=== PATIENT | female | born 1935 | race Caucasian/White ===

== ENCOUNTER 2017-02-15 08:10 | Outpatient (CLI) | payer MEDICARE, OTHER | END 2017-02-15 08:11 | disposition home or self-care (01) | DX: K76.89 Other specified diseases of liver (principal); N28.1 Cyst of kidney, acquired ==

== ENCOUNTER 2017-06-05 10:54 | Outpatient (CLI) | payer MEDICARE, OTHER ==
--- NOTE | 2017-06-05 18:12 | CT Report ---
NONCONTRAST HEAD CT: 06/05/2017 CLINICAL HISTORY: Left-sided head and eye pain. COMPARISON: 06/30/2008 TECHNIQUE: Axial, coronal, and sagittal head CT was obtained at 5 x 5 mm intervals. In accordance with CT protocol optimization, one or more of the following dose reduction techniques w ere utilized for this exam: automated exposure control, adjustment of mA and/or KV based on patient size, or use of iterative reconstructive technique. FINDINGS: Inferior tip of the cerebellar tonsils lies at the level of the foramen magnum. Sella tur cica is not enlarged. Mildly prominent suprasellar cistern is seen. Cerebral ventricles are normal. No extraaxial fluid collections are seen. No masses are noted. No hemorrhage is detected. No significant brain atrophy is seen. Bone windows appear normal. IMPRESSION: NORMAL EXAMINATION WITHOUT CHANGE NOTED COMPARED TO 06/30/2008. JOB #: [id number] EXT JOB #:[id number]
== END 2017-06-05 10:55 | disposition home or self-care (01) ==
LOC: DI 10:54
PROVIDERS: ATTEND Nurse Practitioner Family
DX: R51 Headache (principal)
CPT/HCPCS: 70450

== ENCOUNTER 2017-11-02 10:23 | Outpatient (CLI) | payer MEDICARE, OTHER ==
--- NOTE | 2017-11-08 11:45 | Mammography Report ---
EXAM: DIGITAL BILATERAL SCREENING MAMMOGRAM: 11/02/2017 CLINICAL INDICATION: An 82-year-old, for screening. COMPARISON: 09/2016, 03/2015, 02/2014, 02/2013, 12/2011, 08/2010. TECHNIQUE: Routine CC and MLO projections were obtained of the breasts. FINDINGS: The breasts again demonstrate scattered fibroglandular densities bilaterally. Coarse and punctate, typically benign calcifications are present. No suspicious masses, clustered microcalcifications, or regions of architectural distortion are identified. IMPRESSION: BENIGN FINDINGS. RECOMMENDATIONS: Routine annual screening unless otherwise clinically indicated. BIRADS 2 Benign findings. STANDARD QUALIFYING STATEMENTS: 1. This examination was reviewed with the aid of Computer-Aided Detection (CAD). 2. A negative or benign imaging report should not delay biopsy if clinically suspicious findings are present. Consider surgical consultation if warranted. More than 5% of cancers are not identified by imaging. 3. Dense breasts may obscure an underlying neoplasm. TD: 11/03/2017 16:50 [facility]
== END 2017-11-02 10:24 | disposition home or self-care (01) ==
LOC: DI 10:23
PROVIDERS: ATTEND Physician Assistant
DX: Z12.31 Encounter for screening mammogram for malignant neoplasm of breast (principal)
CPT/HCPCS: 77067

== ENCOUNTER 2018-03-06 08:26 | Day surgery (SDC) | payer MEDICARE, OTHER ==
[2018-03-06] MEDS ORDERED: LACTATED RINGERS 1,000 ML IV ONE (09:04)
[2018-03-06] MEDS ORDERED: fentaNYL 250 MCG/5 ML VIAL IVP ONE (10:04)
[2018-03-06] MEDS ORDERED: MIDAZOLAM 2 MG/2 ML VIAL IVP ONE (10:04)
[2018-03-06 11:53] VITALS: BP 129/58
== END 2018-03-06 08:27 | disposition home or self-care (01) ==
LOC: SDS 08:26
PROVIDERS: ATTEND Surgery
PROC: 0DB78ZX Excision of Stomach, Pylorus, Via Natural or Artificial Opening Endoscopic, Diagnostic (ICD-10-PCS; 2018-03-06)
PROC: 0DB38ZX Excision of Lower Esophagus, Via Natural or Artificial Opening Endoscopic, Diagnostic (ICD-10-PCS; 2018-03-06)
PROC: 0DBP8ZZ Excision of Rectum, Via Natural or Artificial Opening Endoscopic (ICD-10-PCS; principal; 2018-03-06 09:45)
PROC: 0DB48ZX Excision of Esophagogastric Junction, Via Natural or Artificial Opening Endoscopic, Diagnostic (ICD-10-PCS; 2018-03-06 09:45)
DX: R19.5 Other fecal abnormalities (principal); K22.711 Barrett's esophagus with high grade dysplasia; Z80.0 Family history of malignant neoplasm of digestive organs; K62.1 Rectal polyp; K44.9 Diaphragmatic hernia without obstruction or gangrene; K29.70 Gastritis, unspecified, without bleeding
CPT/HCPCS: 43239; 45380; J3010; J7120; 88305; 88342

== ENCOUNTER 2018-10-28 11:29 | Outpatient (CLI) | payer MEDICARE, OTHER ==
--- NOTE | 2018-10-28 21:28 | XRAY Report ---
Reason: PAIN IN LEFT SHOULDER Procedure Date: 10/28/2018 Accession Number: [id number] / [id number] Procedure: XR - Shoulder 3 View LT CPT Code: FULL RESULT: EXAM: LEFT SHOULDER RADIOGRAPHY EXAM DATE: 10/28/2018 12:47 PM. CLINICAL HISTORY: PAIN IN LEFT SHOULDER. COMPARISON: None available. TECHNIQUE: 3 views. FINDINGS: Bones: The bones are osteopenic. No acute fracture or dislocation visualized. Joints: There are mild degenerative changes of the acromioclavicular joint. The glenohumeral and acromioclavicular joints are intact. Soft tissues: There are nonspecific calcified densities superior to the humeral head, which may represent rotator cuff calcium deposition. IMPRESSION: Osteopenia. No acute fracture or dislocation visualized. Possible calcium deposition in the rotator cuff. RADIA
== END 2018-10-28 11:30 | disposition home or self-care (01) ==
LOC: DI 11:29
PROVIDERS: ATTEND Nurse Practitioner Family
DX: M85.812 Other specified disorders of bone density and structure, left shoulder (principal); M19.012 Primary osteoarthritis, left shoulder

== ENCOUNTER 2019-01-03 15:54 | Emergency (ER) | payer MEDICARE, OTHER ==
--- NOTE | 2019-01-03 16:29 | ED Physician Documentation ---
PD HPI DYSPNEA - Stated complaint Stated Complaint: SOA - Chief complaint Chief Complaint: Resp - History obtained from History obtained from: Patient - History of Present Illness Timing - onset: Other (4 days of cough with thick yellow phlegm. Generally worsening. Recent plane trip to [place]. Today, seen in clinic and started on zithromax, prednisone and albuterol.) Review of Systems Ten Systems: 10 systems reviewed and negative Constitutional: denies: Fever, Chills Cardiac: denies: Chest pain / pressure Respiratory: reports: Dyspnea, Cough GI: denies: Abdominal Pain, Nausea, Vomiting Musculoskeletal: denies: Neck pain, Back pain PD PAST MEDICAL HISTORY - Past Medical History Cardiovascular: Hypertension Respiratory: None Endocrine/Autoimmune: None GI: GERD, Hiatal hernia : None HEENT: Glaucoma, Other Psych: None Musculoskeletal: Osteoarthritis Derm: None - Past Surgical History General: Appendectomy, Colonoscopy Ortho: Spine surgery HEENT: Cataracts - Present Medications Home Medications: Ambulatory Orders Medication Instructions Recorded Confirmed ALPRAZolam [Alprazolam] 0.5 DAILY PM 03/06/18 Naproxen Sodium [Aleve] 1 DAILY PM 03/06/18 Omeprazole [PriLOSEC] 1 DAILY 03/06/18 Sertraline [Zoloft] 1 DAILY PM 03/06/18 amLODIPine [Norvasc] 1 DAILY 03/06/18 guaiFENesin/CODEINE [Robitussin AC] 5 - 10 ml PO Q6H PRN #120 ml 01/03/19 - Allergies Allergies/Adverse Reactions: Allergies Allergy/AdvReac Type Severity Reaction Status Date / Time Penicillins Allergy Hives Verified 03/06/18 08:59 Sulfa (Sulfonamide Allergy Nausea Verified 03/06/18 08:58 Antibiotics) PD ED PE NORMAL - Vitals Vital signs reviewed: Yes - General General: Alert and oriented X 3, No acute distress, Other (Occasional bronchitic cough) - HEENT HEENT: PERRL, EOMI - Neck Neck: Supple, no meningeal sign, No bony TTP - Cardiac Cardiac: RRR, No murmur - Respiratory Respiratory: No respiratory distress, Other (Rhonchorous throughout, nothing focal.) - Abdomen Abdomen: Soft, Non tender - Back Back: No CVA TTP, No spinal TTP - Derm Derm: Normal color, Warm and dry - Extremities Extremities: No edema, No calf tenderness / cord - Neuro Neuro: Alert and oriented X 3, Normal speech - Psych Psych: Normal mood, Normal affect Results - Vitals Vitals: Vital Signs - 24 hr 01/03/19 01/03/19 15:58 17:22 Temperature 36.1 C L Heart Rate 92 80 Respiratory 24 20 Rate Blood Pressure 164/76 H O2 Saturation 92 Oxygen O2 Source Room air - EKG (time done) 1606 Rate: Rate (enter#) (87) Rhythm: NSR [place]: Normal Intervals: Prolonged [place] QRS: Low voltage Ischemia: Non specific changes Computer interpretation: Agree with computer - Labs Labs: Laboratory Tests 01/03/19 01/03/19 01/03/19 16:12 16:12 16:12 WBC 8.7 RBC 4.39 Hgb 13.1 Hct 40.9 MCV 93.2 MCH 29.8 MCHC 32.0 RDW 13.9 Plt Count 233 MPV 8.4 Neut # (Auto) 6.1 Lymph # (Auto) 1.1 L [place] # (Auto) 1.4 H Eos # (Auto) 0.1 Baso # (Auto) 0.0 Absolute Nucleated RBC 0.01 Nucleated RBC % 0.1 D-Dimer 352.8 H Sodium 131 L Potassium 3.1 L Chloride 97 L Carbon Dioxide 25 Anion Gap 9.0 BUN 12 Creatinine 0.5 Estimated GFR (MDRD) 118 Glucose 115 H Calcium 8.9 Total Bilirubin 0.8 AST 33 ALT 21 Alkaline Phosphatase 53 Total Protein 6.7 Albumin 3.6 Globulin 3.1 Albumin/Globulin Ratio 1.2 Lipase 40 - Rads (name of study) 2v chest Radiology: EMP read contemporaneously (NAD) PD MEDICAL DECISION MAKING - ED course ED course: D-dimer checked given recent travel, the value obtained is less than most authorities would consider to be an appropriate cut off for ruling out PE which is 500, and much less than and age-adjusted cut off so I feel this value is negative especially given the low pretest probability. Otherwise she has a syndrome consistent with bronchitis which she is already on appropriate treatment for, albeit its only been for a few hours now so probably has not been enough time to see an effect. She was given a breathing treatment and some codeine here. Departure - Departure Disposition: 01 Home, Self Care Clinical Impression: Bronchitis Condition: Good Record reviewed to determine appropriate education?: Yes Instructions: ED Bronchitis Asthmatic Prescriptions: guaiFENesin/CODEINE [Robitussin AC] 5 - 10 ml PO Q6H PRN #120 ml PRN Reason: Cough Comments: Your blood pressure was elevated today on check into the emergency department. This does not mean that you have hypertension, it is a common phenomenon to come to the emergency department and have elevated blood pressure. I recommend that you see your primary care physician within the week to have it rechecked when you are feeling better.
[2019-01-03] MEDS ORDERED: guaiFENesin/CODEINE 5 ML UDC PO STA (16:41)
[2019-01-03 16:45] LABS: BASOPHILS % (AUTO) 0.5 %; EOSINOPHILS # (AUTO) 0.1 10^3/uL (0.0-0.7); EOSINOPHILS % (AUTO) 1.6 %; HGB - HEMOGLOBIN 13.1 g/dL (12.0-16.0); LYMPHOCYTES # (AUTO) 1.1 10^3/uL (1.5-3.5); LYMPHOCYTES % (AUTO) 12.6 %; MEAN CORPUSCULAR HEMOGLOBIN 29.8 pg (27.0-31.0); MEAN CORPUSCULAR VOLUME 93.2 fL (81.0-99.0); MEAN PLATELET VOLUME 8.4 fL (7.9-10.8); MONOCYTES # (AUTO) 1.4 10^3/uL (0.0-1.0); MONOCYTES % (AUTO) 15.7 %; NEUTROPHILS # (AUTO) 6.1 10^3/uL (1.5-6.6); NEUTROPHILS % (AUTO) 69.6 %; PLT - PLATELET COUNT 233 10^3/uL (130-450); RED BLOOD COUNT 4.39 10^6/uL (4.20-5.40); RED CELL DISTRIBUTION WIDTH 13.9 % (12.0-15.0); WHITE BLOOD COUNT 8.7 x10^3/uL (4.8-10.8)
[2019-01-03 16:51] LABS: ALBUMIN 3.6 g/dL (3.2-5.5); ALBUMIN/GLOBULIN RATIO 1.2 (1.0-2.2); BILIRUBIN,TOTAL 0.8 mg/dL (0.2-1.0); CALCIUM 8.9 mg/dL (8.5-10.3); CREATININE 0.5 mg/dL (0.4-1.0); TOTAL PROTEIN 6.7 g/dL (6.7-8.2)
[2019-01-03] MEDS ORDERED: IPRATROPIUM/ALBUTEROL 3 ML NEB INH STA (17:02)
--- NOTE | 2019-01-03 17:18 | XRAY Report ---
Reason: cough Procedure Date: 01/03/2019 Accession Number: [id number] / [id number] Procedure: XR - Chest 2 View X-Ray CPT Code: 68525 FULL RESULT: EXAM: CHEST RADIOGRAPHY EXAM DATE: 01/03/2019 05:06 PM. CLINICAL HISTORY: Cough. COMPARISON: XR CHEST PA AND LAT 07/02/2012 9:23 AM. TECHNIQUE: 2 views. FINDINGS: Lungs/Pleura: No focal opacities evident. No pleural effusion. No pneumothorax. Normal volumes. Mediastinum: Normal heart size. Tortuous, atherosclerotic aorta. Other: None. IMPRESSION: No acute cardiopulmonary abnormality. RADIA
[2019-01-03 17:59] VITALS: BP 122/91
== END 2019-01-03 18:00 | disposition home or self-care (01) ==
LOC: ED 15:54
DX: J40 Bronchitis, not specified as acute or chronic (principal); R94.31 Abnormal electrocardiogram [ECG] [EKG]; I10 Essential (primary) hypertension
CPT/HCPCS: 36415; 71046; 80053; 83690; 85025; 85379; 93005; 94640; 94664; 99283; 99284; A9270

== ENCOUNTER 2019-01-05 10:59 | Emergency (ER) | payer MEDICARE, OTHER ==
--- NOTE | 2019-01-05 11:53 | ED Physician Documentation ---
PD HPI URI - Stated complaint Stated Complaint: SOA/SENT BY - Chief complaint Chief Complaint: Resp - History obtained from History obtained from: Patient - History of Present Illness Timing - onset: How many weeks ago (1) Timing duration: Weeks (1) Timing details: Still present Associated symptoms: Chills, Dry cough, Dyspnea. No: Fever, Hemoptysis, Bilateral edema Contributing factors: COPD / asthma Worsened by: Activity Recently seen: Emergency Dept (2 days ago and Rx Robitussin AC for cough, after being seen in office with Rx for Zithromax, prednisone, and Albuterol inhaler. Still with cough and wheezing. Called her PMD today and referred to ER.) Review of Systems Constitutional: reports: Chills, Myalgias, Fatigue. denies: Fever Nose: reports: Congestion Throat: denies: Sore throat Respiratory: reports: Dyspnea, Cough, Wheezing GI: denies: Vomiting, Diarrhea Skin: denies: Rash, Lesions Musculoskeletal: denies: Extremity swelling PD PAST MEDICAL HISTORY - Past Medical History Cardiovascular: Hypertension Respiratory: None Endocrine/Autoimmune: None GI: GERD, Hiatal hernia : None HEENT: Glaucoma, Other Psych: None Musculoskeletal: Osteoarthritis Derm: None - Past Surgical History Past Surgical History: Yes General: Appendectomy, Colonoscopy Ortho: Spine surgery HEENT: Cataracts - Present Medications Home Medications: Ambulatory Orders Medication Instructions Recorded Confirmed ALPRAZolam [Alprazolam] 0.5 DAILY PM 03/06/18 Naproxen Sodium [Aleve] 1 DAILY PM 03/06/18 Omeprazole [PriLOSEC] 1 DAILY 03/06/18 Sertraline [Zoloft] 1 DAILY PM 03/06/18 amLODIPine [Norvasc] 1 DAILY 03/06/18 guaiFENesin/CODEINE [Robitussin AC] 5 - 10 ml PO Q6H PRN #120 ml 01/03/19 Albuterol 2.5 mg INH Q4H PRN #30 neb 01/05/19 Benzonatate [Tessalon Perle] 100 - 200 mg PO TID PRN #30 capsule 01/05/19 Nebulizer [Truneb Nebulizer] 1 each MC QID #1 each 01/05/19 - Allergies Allergies/Adverse Reactions: Allergies Allergy/AdvReac Type Severity Reaction Status Date / Time Penicillins Allergy Hives Verified 01/05/19 11:10 Sulfa (Sulfonamide Allergy Nausea Verified 01/05/19 11:10 Antibiotics) - Social History Does the pt smoke?: No Smoking Status: Never smoker Does the pt drink ETOH?: Yes Does the pt have substance abuse?: No - Immunizations Immunizations are current?: Yes PD ED PE NORMAL - Vitals Vital signs reviewed: Yes - General General: Alert and oriented X 3, No acute distress, Well developed/nourished - HEENT HEENT: Pharynx benign - Neck Neck: Supple, no meningeal sign, No adenopathy - Cardiac Cardiac: RRR, No murmur - Respiratory Respiratory: No respiratory distress. No: Clear bilaterally (diffuse wheezing and some prolonged exp phase. Able to talk in sentences. ) - Abdomen Abdomen: Soft, Non tender - Derm Derm: Normal color, Warm and dry - Extremities Extremities: No deformity, Normal ROM s pain, No edema, No calf tenderness / cord - Neuro Neuro: Alert and oriented X 3, No motor deficit, Normal speech Results - Vitals Vitals: Oxygen O2 Source Room air - Rads (name of study) chest xray Radiology: Prelim report reviewed (no pneumonia, similar to recent one. ), EMP read contemporaneously, See rad report PD MEDICAL DECISION MAKING - ED course Complexity details: considered differential (symptoms not too bad and vitals adequate. Feels better with neb. No pneumonia on xray. ), d/w patient Departure - Departure Disposition: 01 Home, Self Care Clinical Impression: Bronchitis Condition: Stable Record reviewed to determine appropriate education?: Yes Instructions: ED Bronchitis Asthmatic Follow-Up: Kendra Thornton PA [Primary Care Provider] - Prescriptions: Albuterol 2.5 mg INH Q4H PRN #30 neb PRN Reason: Wheezing Benzonatate [Tessalon Perle] 100 - 200 mg PO TID PRN #30 capsule PRN Reason: Cough Nebulizer [Truneb Nebulizer] 1 each QID #1 each Comments: The nebulizer seemed to work better for you than your inhaler at home. I wrote prescription for the nebulizer and some albuterol for it. Use this 4 times a day for the next week. Add extra doses or your inhaler as needed for wheezing. Continue your Zithromax daily for the total of 5 days. Take your prednisone prescribed 2 tablets daily rather than the 1 daily you are doing. Use Tessalon if needed for cough. Continue cough medicine if needed. Recheck if not improving still over the next few days. Discharge Date/Time: 01/05/19 14:43
[2019-01-05] MEDS ORDERED: IPRATROPIUM/ALBUTEROL 3 ML NEB INH STA (12:23)
[2019-01-05] MEDS ORDERED: guaiFENesin/CODEINE 5 ML UDC PO STA (12:25)
[2019-01-05] MEDS ORDERED: DEXAMETHASONE 10 MG/ML VIAL PO STA (12:25)
[2019-01-05] MEDS ORDERED: BENZONATATE 100 MG CAPSULE PO STA (12:25)
--- NOTE | 2019-01-05 13:30 | XRAY Report ---
Reason: cough for a week, meds for 2 days, not improving Procedure Date: 01/05/2019 Accession Number: [id number] / [id number] Procedure: XR - Chest 2 View X-Ray CPT Code: 05682 FULL RESULT: EXAM: CHEST RADIOGRAPHY EXAM DATE: 01/05/2019 01:14 PM. CLINICAL HISTORY: Cough for a week, meds for 2 days, not improving. COMPARISON: CHEST 2 VIEW 01/03/2019 4:56 PM. TECHNIQUE: 2 views. FINDINGS: Lungs/Pleura: No consolidative process or focal pneumonia. Negative for pulmonary edema and pleural effusion. Negative for pneumothorax. Mediastinum: Heart and mediastinal contours are unremarkable. Other: None. IMPRESSION: No consolidative process or focal pneumonia RADIA
[2019-01-05 13:52] VITALS: BP 134/100
== END 2019-01-05 14:43 | disposition home or self-care (01) ==
LOC: ED 10:59
DX: J40 Bronchitis, not specified as acute or chronic (principal); I10 Essential (primary) hypertension
CPT/HCPCS: 71046; 94640; 99283; A9270

== ENCOUNTER 2019-03-11 11:02 | Emergency (ER) | payer MEDICARE, OTHER ==
[2019-03-11 11:30] LABS: BASOPHILS # (AUTO) 0.1 10^3/uL (0.0-0.1); BASOPHILS % (AUTO) 1.4 %; EOSINOPHILS # (AUTO) 0.2 10^3/uL (0.0-0.7); EOSINOPHILS % (AUTO) 2.9 %; HGB - HEMOGLOBIN 14.5 g/dL (12.0-16.0); LYMPHOCYTES # (AUTO) 2.4 10^3/uL (1.5-3.5); LYMPHOCYTES % (AUTO) 31.8 %; MEAN CORPUSCULAR HEMOGLOBIN 29.4 pg (27.0-31.0); MEAN CORPUSCULAR HGB CONC 32.8 g/dL (32.0-36.0); MEAN CORPUSCULAR VOLUME 89.7 fL (81.0-99.0); MEAN PLATELET VOLUME 7.6 fL (7.9-10.8); MONOCYTES # (AUTO) 0.9 10^3/uL (0.0-1.0); MONOCYTES % (AUTO) 11.3 %; NEUTROPHILS % (AUTO) 52.6 %; PLT - PLATELET COUNT 246 10^3/uL (130-450); RED BLOOD COUNT 4.94 10^6/uL (4.20-5.40); RED CELL DISTRIBUTION WIDTH 14.7 % (12.0-15.0); WHITE BLOOD COUNT 7.7 x10^3/uL (4.8-10.8)
--- NOTE | 2019-03-11 11:33 | ED Physician Documentation ---
PD HPI CHEST PAIN - Stated complaint Stated Complaint: CHEST PX - Chief complaint Chief Complaint: Cardiac - History obtained from History obtained from: Patient - History of Present Illness Timing - onset: Yesterday Timing - details: Gradual onset Pain level max: 3 Pain level now: 0 Radiation: No: Jaw, Neck, Back, Abdominal, Left upper extremity, Right upper extremity Associated symptoms: Shortness of air. No: Diaphoresis, Nausea, Vomiting, Feeling faint / dizzy, General Weakness, Palpitations, Cough Similar symptoms before: Has not had sx before - Additional information Additional information: 83-year-old female states that she has been having intermittent shortness of breath since she had influenza a few months ago. She states that [place] when she felt mildly short of breath and like there was a band around her chest. This lasted approximately 2 hours. She saw her doctor this morning and was referred here. No cardiac history. States she has had a normal stress test in the past. She is currently asymptomatic. Nothing made it better or worse. Review of Systems Ten Systems: 10 systems reviewed and negative Constitutional: denies: Fever, Chills Nose: denies: Rhinorrhea / runny nose, Congestion Cardiac: denies: Palpitations GI: denies: Vomiting Skin: denies: Rash Musculoskeletal: denies: Neck pain, Back pain, Extremity pain PD PAST MEDICAL HISTORY - Past Medical History Cardiovascular: Hypertension Respiratory: None Endocrine/Autoimmune: None GI: GERD, Hiatal hernia : None HEENT: Glaucoma, Other Psych: None Musculoskeletal: Osteoarthritis Derm: None - Past Surgical History Past Surgical History: Yes General: Appendectomy, Colonoscopy Ortho: Spine surgery HEENT: Cataracts - Present Medications Home Medications: Ambulatory Orders Medication Instructions Recorded Confirmed Sertraline [Zoloft] 1 DAILY PM 03/06/18 amLODIPine [Norvasc] 1 DAILY 03/06/18 ALPRAZolam [Alprazolam] 0.5 mg PO 03/11/19 Simvastatin 20 mg PO 03/11/19 - Allergies Allergies/Adverse Reactions: Allergies Allergy/AdvReac Type Severity Reaction Status Date / Time Penicillins Allergy Hives Verified 03/11/19 11:49 [id number]-[id number]-Kge Reductase Allergy Unknown Verified 03/11/19 11:49 Inhibitor Sulfa (Sulfonamide Allergy Nausea Verified 03/11/19 11:49 Antibiotics) trazodone Allergy Unknown Verified 03/11/19 11:49 aspirin AdvReac Unknown Verified 03/11/19 11:49 codeine AdvReac Unknown Verified 03/11/19 11:49 - Social History Does the pt smoke?: No Smoking Status: Never smoker Does the pt drink ETOH?: Yes Does the pt have substance abuse?: No - Immunizations Immunizations are current?: Yes PD ED PE NORMAL - Vitals Vital signs reviewed: Yes - General General: Alert and oriented X 3, No acute distress, Well developed/nourished - HEENT HEENT: PERRL, Ears normal, Moist mucous membranes, Pharynx benign - Neck Neck: Supple, no meningeal sign - Cardiac Cardiac: RRR, Strong equal pulses - Respiratory Respiratory: No respiratory distress, Clear bilaterally - Abdomen Abdomen: Soft, Non tender, Non distended - Back Back: No spinal TTP - Derm Derm: Warm and dry - Extremities Extremities: No edema, No calf tenderness / cord - Neuro Neuro: Alert and oriented X 3 - Psych Psych: Normal mood, Normal affect Results - Vitals Vitals: Vital Signs - 24 hr 03/11/19 03/11/19 03/11/19 11:09 11:38 12:25 Temperature 36.6 C Heart Rate 78 70 64 Respiratory 22 20 21 Rate Blood Pressure 164/87 H 119/79 123/67 O2 Saturation 100 93 94 Oxygen O2 Source Room air - EKG (time done) 1108 Rate: Rate (enter#) (73) Rhythm: NSR [place]: Other (Left anterior fascicular block) Intervals: 1st degree AVB QRS: Normal Ischemia: Non specific changes - Labs Labs: Laboratory Tests 03/11/19 03/11/19 03/11/19 11:16 11:16 11:16 WBC 7.7 RBC 4.94 Hgb 14.5 Hct 44.4 MCV 89.7 MCH 29.4 MCHC 32.8 RDW 14.7 Plt Count 246 MPV 7.6 L Neut # (Auto) 4.0 Lymph # (Auto) 2.4 [place] # (Auto) 0.9 Eos # (Auto) 0.2 Baso # (Auto) 0.1 Absolute Nucleated RBC 0.01 Nucleated RBC % 0.1 Sodium 137 Potassium 3.7 Chloride 101 Carbon Dioxide 28 Anion Gap 8.0 BUN 21 H Creatinine 0.7 Estimated GFR (MDRD) 80 L Glucose 84 Calcium 9.3 Total Bilirubin 0.7 AST 27 ALT 18 Alkaline Phosphatase 58 Troponin I < 0.04 Total Protein 7.2 Albumin 4.4 Globulin 2.8 Albumin/Globulin Ratio 1.6 Lipase 37 - Rads (name of study) Chest x-ray Radiology: Prelim report reviewed, EMP read contemporaneously, See rad report (No acute abnormality) PD MEDICAL DECISION MAKING - ED course Complexity details: reviewed results, re-evaluated patient, considered differe ntial (No ST elevation DC, no aortic dissection, no PE, no tension pneumothorax, no aortic aneurysm), d/w patient ED course: 83-year-old female with chest pain yesterday. Negative troponin. No acute ischemic changes on EKG. Will follow up with her doctor this week for a stress test. Will start on aspirin daily. Patient counseled regarding signs and symptoms for which I believe and urgent re-evaluation would be necessary. Patient with good understanding of and agreement to plan and is comfortable going home at this time This document was made in part using voice recognition software. While efforts are made to proofread this document, sound alike and grammatical errors may occur. Departure - Departure Disposition: Home, Self Care Clinical Impression: Chest pain Qualifiers: Chest pain type: unspecified Qualified Code(s): R07.9 - Chest pain, unspecified Dyspnea Qualifiers: Dyspnea type: unspecified Qualified Code(s): R06.00 - Dyspnea, unspecified Condition: Good Instructions: ED Chest Pain Atypical Unkn Cause Follow-Up: Kendra Thornton PA [Primary Care Provider] - Within 3 Days Comments: The cause of your symptoms is unclear. You should start on a aspirin, 81 mg by mouth daily. You should also have a cardiac stress test scheduled this week with your doctor. Return if you worsen Discharge Date/Time: 03/11/19 12:35
[2019-03-11 11:48] LABS: ALBUMIN 4.4 g/dL (3.2-5.5); ALBUMIN/GLOBULIN RATIO 1.6 (1.0-2.2); BILIRUBIN,TOTAL 0.7 mg/dL (0.2-1.0); CALCIUM 9.3 mg/dL (8.5-10.3); CREATININE 0.7 mg/dL (0.4-1.0); TOTAL PROTEIN 7.2 g/dL (6.7-8.2)
--- NOTE | 2019-03-11 12:04 | XRAY Report ---
Reason: Chest Pain Procedure Date: 03/11/2019 Accession Number: [id number] / [id number] Procedure: XR - Chest 1 View X-Ray CPT Code: 27444 FULL RESULT: EXAM: CHEST RADIOGRAPHY EXAM DATE: 03/11/2019 11:33 AM. CLINICAL HISTORY: Chest pain. COMPARISON: CHEST 2 VIEW 01/05/2019 1:03 PM. TECHNIQUE: 1 view. FINDINGS: Lungs/Pleura: No focal opacities evident. No pleural effusion. No pneumothorax. Mediastinum: Redemonstration of mild aortic calcifications with stable cardiomediastinal silhouette. Other: None. IMPRESSION: No acute cardiopulmonary abnormality. RADIA
[2019-03-11 12:29] VITALS: BP 123/67
== END 2019-03-11 12:35 | disposition home or self-care (01) ==
LOC: ED 11:02
DX: R07.9 Chest pain, unspecified (principal); R06.02 Shortness of breath; I10 Essential (primary) hypertension
CPT/HCPCS: 36415; 71045; 80053; 83690; 84484; 85025; 93005; 99283

== ENCOUNTER 2019-03-28 16:05 | Outpatient (CLI) | payer MEDICARE, OTHER ==
--- NOTE | 2019-03-29 08:23 | Mammography Report ---
Reason: SCREENING MAMMO Procedure Date: 03/28/2019 Accession Number: [id number] / [id number] Procedure: GRICEL - Screening Mammo w/Flavio CPT Code: FULL RESULT: EXAM: Screening Mammo w/Flavio DATE: 03/28/2019 4:45 PM CLINICAL HISTORY: Screening encounter. History of greater than 10 years combine estrogen and progesterone therapy, [id number]. TECHNIQUE: (B) - Bilateral CC and MLO views were obtained. COMPARISON: 11/02/2017 through 01/11/2012. PARENCHYMAL PATTERN: (A) - The breast(s) demonstrate(s) scattered fibroglandular densities. FINDINGS: There are typically benign vascular calcifications. There are no suspicious masses, calcifications, or areas of distortion. IMPRESSION: Benign findings. BI-RADS category 2. RECOMMENDATION: (ANNUAL) - Recommend routine annual screening mammography. BI-RADS CATEGORY: (2) - Benign Findings. STANDARD QUALIFYING STATEMENTS: 1. This examination was not reviewed with the aid of Computer-Aided Detection (CAD). 2. A negative or benign imaging report should not preclude biopsy if clinically suspicious findings are present. 3. Dense breasts may obscure an underlying neoplasm. 4. This examination was reviewed with the aid of 3D breast imaging (tomosynthesis).
== END 2019-03-28 16:06 | disposition home or self-care (01) ==
LOC: DI 16:05
PROVIDERS: ATTEND Physician Assistant
DX: Z12.31 Encounter for screening mammogram for malignant neoplasm of breast (principal)
CPT/HCPCS: 77063; 77067

== ENCOUNTER 2019-06-04 10:15 | Outpatient (CLI) | payer MEDICARE, OTHER ==
[2019-06-04 11:14] LABS: CHOLESTEROL 289 mg/dL; HDL CHOLESTEROL 72 mg/dL; LDL CHOLESTEROL,CALCULATED 200 mg/dL; LDL/HDL RATIO 2.8 (<4.4); VLDL CHOLESTEROL 17 mg/dL
== END 2019-06-04 10:16 | disposition home or self-care (01) ==
LOC: LAB 10:15
PROVIDERS: ATTEND Internal Medicine Cardiovascular Disease
DX: E78.5 Hyperlipidemia, unspecified (principal)
CPT/HCPCS: 36415; 80061; 83721

== ENCOUNTER 2019-09-05 02:21 | Outpatient (CLI) | payer MEDICARE, OTHER | END 2019-09-05 02:22 | disposition critical access hospital (66) | LOC: EMS 02:21 | PROVIDERS: ATTEND Surgery | DX: R04.0 Epistaxis (principal) | CPT/HCPCS: A0425; A0429 ==

== ENCOUNTER 2019-09-05 02:43 | Emergency (ER) | payer MEDICARE, OTHER ==
[2019-09-05] MEDS ORDERED: TRANEXAMIC ACID 1,000 MG/10 ML VIAL NAS STA (02:50)
[2019-09-05] MEDS ORDERED: OXYMETAZOLINE HCL 100 SPRAYS BOTTLE NAS STA (02:50)
--- NOTE | 2019-09-05 02:51 | ED Physician Documentation ---
PD HPI HEENT - Stated complaint Stated Complaint: NOSE BLEED - Chief complaint Chief Complaint: Heent - History obtained from History obtained from: Patient, EMS - History of Present Illness Timing - onset: How many hours ago (11/21) Timing - duration: Hours (2) Timing - details: Abrupt onset, Still present Location: Nose (right nostril) Improves: Nothing (tried pinching and ice on neck.) Associated symptoms: No: Fever, Congestion Similar symptoms before: Has not had sx before Recently seen: Clinic (has had some respiratory wheezing and seen by Pulm, on steroids the past 5 weeks. Has Pulmonary Rehab.) Review of Systems Constitutional: denies: Fever Nose: denies: Rhinorrhea / runny nose, Congestion Throat: denies: Sore throat Cardiac: denies: Chest pain / pressure Respiratory: reports: Dyspnea, Cough, Wheezing (for months) Neurologic: denies: Generalized weakness, Near syncope Endocrine: denies: Easy bruising / bleeding PD PAST MEDICAL HISTORY - Past Medical History Cardiovascular: None Respiratory: Shortness of breath Neuro: None Endocrine/Autoimmune: None - Present Medications Home Medications: Ambulatory Orders Medication Instructions Recorded Confirmed Sertraline [Zoloft] 50 mg PO DAILY PM 03/06/18 09/05/19 amLODIPine [Norvasc] 5 mg PO DAILY 03/06/18 09/05/19 ALPRAZolam [Alprazolam] 0.5 mg PO DAILY 03/11/19 09/05/19 Simvastatin 20 mg PO DAILY 03/11/19 09/05/19 Amitriptyline HCl 5 mg PO DAILY 09/05/19 09/05/19 Calcium Carbonate/Vitamin D3 1 tab PO DAILY 09/05/19 09/05/19 [Calcium 500-Vit D3 200 Tablet] Cholecalciferol (Vitamin D3) 1 cap PO DAILY 09/05/19 09/05/19 [Vitamin D3] [place]-3/Dha/Epa/Fish Oil [Fish Oil 1 cap PO DAILY 09/05/19 09/05/19 1,000 mg Softgel] - Allergies Allergies/Adverse Reactions: Allergies Allergy/AdvReac Type Severity Reaction Status Date / Time Penicillins Allergy Hives Verified 09/05/19 02:54 Pynwtnn-Rwt-Tub Reductase Allergy Unknown Verified 09/05/19 02:54 Inhibitor Sulfa (Sulfonamide Allergy Nausea Verified 09/05/19 02:54 Antibiotics) trazodone Allergy Unknown Verified 09/05/19 02:54 aspirin AdvReac Unknown Verified 09/05/19 02:54 codeine AdvReac Unknown Verified 09/05/19 02:54 PD ED PE NORMAL - Vitals Vital signs reviewed: Yes - General General: Alert and oriented X 3, Well developed/nourished - HEENT HEENT: Moist mucous membranes, Pharynx benign, Other (right nare with active bleeding without pressure. Left nare normal. Single spot of inflammed vessel as source of bleeding. No ulcerations. ) - Neck Neck: Supple, no meningeal sign, No adenopathy - Cardiac Cardiac: RRR, No murmur - Derm Derm: Normal color, Warm and dry - Neuro Neuro: Alert and oriented X 3, No motor deficit, No sensory deficit Results - Vitals Vitals: Vital Signs - 24 hr 09/05/19 09/05/19 09/05/19 02:45 03:02 03:10 Temperature 36.9 C Heart Rate 94 82 69 Respiratory 18 18 16 Rate Blood Pressure 185/111 H 135/101 H 132/89 H O2 Saturation 98 94 95 09/05/19 03:53 Temperature Heart Rate 64 Respiratory 15 Rate Blood Pressure 123/82 H O2 Saturation 96 Oxygen O2 Source Room air - Labs Labs: Laboratory Tests 09/05/19 09/05/19 03:00 03:00 WBC 13.4 H RBC 4.57 Hgb 13.8 Hct 42.1 MCV 92.1 MCH 30.2 MCHC 32.8 RDW 15.0 Plt Count 245 MPV 8.6 Neut # (Auto) 9.6 H Lymph # (Auto) 2.3 [place] # (Auto) 1.3 H Eos # (Auto) 0.1 Baso # (Auto) 0.0 Absolute Nucleated RBC 0.00 Nucleated RBC % 0.0 Sodium 136 Potassium 3.5 Chloride 102 Carbon Dioxide 24 Anion Gap 10.0 BUN 33 H Creatinine 0.6 Estimated GFR (MDRD) 95 Glucose 99 Calcium 9.5 Total Bilirubin 0.8 AST 19 ALT 22 Alkaline Phosphatase 43 Total Protein 6.6 L Albumin 4.1 Globulin 2.5 Albumin/Globulin Ratio 1.6 Lipase 44 Procedures - Epistaxis Site: Right, Anterior Preparation: Afrin, Clamp / pressure applied, Other (TXA) Treatment: Silver Nitrate, Packing inserted (murocel) Other: Observed - no bleeding, Pt tolerated well, O2 sat WNL PD MEDICAL DECISION MAKING - ED course Complexity details: considered differential, d/w patient Departure - Departure Disposition: 01 Home, Self Care Clinical Impression: Anterior epistaxis Condition: Stable Record reviewed to determine appropriate education?: Yes Instructions: ED Nosebleed Comments: Keep the foam packing in the nostril for a day and then remove it gently. If you have recurrent bleeding, then saturated the foam with the Afrin spray and pinch the nose for at least 15 minutes. Return if bleeding persist despite that. Otherwise if no further bleeding and remove the packing gently in a day or follow-up with your primary care to have it removed or back to the ER. It looks like just a spot of irritation on the nasal wall with an inflamed blood vessel. This should heal up with the chemical sealant and time.
[2019-09-05 03:33] LABS: HGB - HEMOGLOBIN 13.8 g/dL (12.0-16.0); MEAN CORPUSCULAR HEMOGLOBIN 30.2 pg (27.0-31.0); MEAN CORPUSCULAR VOLUME 92.1 fL (81.0-99.0); RED BLOOD COUNT 4.57 10^6/uL (4.20-5.40); WHITE BLOOD COUNT 13.4 x10^3/uL (4.8-10.8)
[2019-09-05 03:34] LABS: BASOPHILS % (AUTO) 0.1 %; EOSINOPHILS # (AUTO) 0.1 10^3/uL (0.0-0.7); EOSINOPHILS % (AUTO) 0.5 %; LYMPHOCYTES # (AUTO) 2.3 10^3/uL (1.5-3.5); LYMPHOCYTES % (AUTO) 17.5 %; MEAN CORPUSCULAR HGB CONC 32.8 g/dL (32.0-36.0); MEAN PLATELET VOLUME 8.6 fL (7.9-10.8); MONOCYTES # (AUTO) 1.3 10^3/uL (0.0-1.0); MONOCYTES % (AUTO) 9.5 %; NEUTROPHILS # (AUTO) 9.6 10^3/uL (1.5-6.6); PLT - PLATELET COUNT 245 10^3/uL (130-450)
[2019-09-05 03:38] LABS: ALBUMIN 4.1 g/dL (3.2-5.5); ALBUMIN/GLOBULIN RATIO 1.6 (1.0-2.2); BILIRUBIN,TOTAL 0.8 mg/dL (0.2-1.0); CALCIUM 9.5 mg/dL (8.5-10.3); CREATININE 0.6 mg/dL (0.4-1.0); TOTAL PROTEIN 6.6 g/dL (6.7-8.2)
[2019-09-05 05:27] VITALS: BP 142/91
== END 2019-09-05 05:45 | disposition home or self-care (01) ==
LOC: EDUNIT# → ED 02:43
DX: R04.0 Epistaxis (principal)
CPT/HCPCS: 30901; 36415; 80053; 83690; 85025; 99282; 99283; A9270

== ENCOUNTER 2019-09-10 20:59 | Emergency (ER) | payer MEDICARE, OTHER ==
[2019-09-10] MEDS ORDERED: OXYMETAZOLINE HCL 100 SPRAYS BOTTLE NAS STA (21:49)
[2019-09-10] MEDS ORDERED: LIDOCAINE 1%-EPI 1:100000 20 ML MDV SUBQ STA (21:49)
--- NOTE | 2019-09-10 21:52 | ED Physician Documentation ---
PD HPI HEENT - Stated complaint Stated Complaint: NOSEBLEED - Chief complaint Chief Complaint: Heent - History obtained from History obtained from: Patient - History of Present Illness Timing - onset: Today (She was seen here last week with a nosebleed, Merisel packing was placed. It started bleeding again from the right just prior to arrival. Labs last week were unremarkable. 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 : None HEENT: Glaucoma, Other Psych: Anxiety Musculoskeletal: Osteoarthritis Derm: None - Past Surgical History Past Surgical History: Yes General: Appendectomy, Colonoscopy Ortho: Spine surgery HEENT: Cataracts - Present Medications Home Medications: Ambulatory Orders Medication Instructions Recorded Confirmed Sertraline [Zoloft] 50 mg PO DAILY PM 03/06/18 09/05/19 amLODIPine [Norvasc] 5 mg PO DAILY 03/06/18 09/05/19 ALPRAZolam [Alprazolam] 0.5 mg PO DAILY 03/11/19 09/05/19 Simvastatin 20 mg PO DAILY 03/11/19 09/05/19 Amitriptyline HCl 5 mg PO DAILY 09/05/19 09/05/19 Calcium Carbonate/Vitamin D3 1 tab PO DAILY 09/05/19 09/05/19 [Calcium 500-Vit D3 200 Tablet] Cholecalciferol (Vitamin D3) 1 cap PO DAILY 09/05/19 09/05/19 [Vitamin D3] [place]-3/Dha/Epa/Fish Oil [Fish Oil 1 cap PO DAILY 09/05/19 09/05/19 1,000 mg Softgel] - Allergies Allergies/Adverse Reactions: Allergies Allergy/AdvReac Type Severity Reaction Status Date / Time Penicillins Allergy Hives Verified 09/05/19 02:54 Qiktydp-Yoz-Ovf Reductase Allergy Unknown Verified 09/05/19 02:54 Inhibitor Sulfa (Sulfonamide Allergy Nausea Verified 09/05/19 02:54 Antibiotics) trazodone Allergy Unknown Verified 09/05/19 02:54 aspirin AdvReac Unknown Verified 09/05/19 02:54 codeine AdvReac Unknown Verified 09/05/19 02:54 - Social History Does the pt smoke?: No Smoking Status: Never smoker Does the pt drink ETOH?: Yes Does the pt have substance abuse?: No - Immunizations Immunizations are current?: Yes - POLST Patient has POLST: No PD ED PE NORMAL - Vitals Vital signs reviewed: Yes - General General: Alert and oriented X 3, No acute distress - HEENT HEENT: Other (active venous epistaxis from R nares) - Neuro Neuro: Alert and oriented X 3, Normal speech Results - Vitals Vitals: Vital Signs - 24 hr 09/10/19 21:05 Temperature 36.7 C Heart Rate 93 Respiratory 18 Rate Blood Pressure 149/103 H O2 Saturation 94 Oxygen O2 Source Room air Procedures - Epistaxis Site: Right Preparation: Clots removed, Afrin, Lidocaine, Clamp / pressure applied Treatment: Silver Nitrate Other: Observed - no bleeding Departure - Departure Disposition: 01 Home, Self Care Clinical Impression: Anterior epistaxis Condition: Good Record reviewed to determine appropriate education?: Yes Instructions: Nosebleed Comments: Your blood pressure was elevated today on check into the emergency department. This does not mean that you have hypertension, it is a common phenomenon to come to the emergency department and have elevated blood pressure. I recommend that you see your primary care physician within the week to have it rechecked when you are feeling better.
[2019-09-10 23:22] VITALS: BP 121/66
== END 2019-09-10 23:24 | disposition home or self-care (01) ==
LOC: ED 20:59
DX: R04.0 Epistaxis (principal); I10 Essential (primary) hypertension
CPT/HCPCS: 30901; 99281; 99282; A9270

== ENCOUNTER 2019-11-26 08:47 | Outpatient (CLI) | payer MEDICARE, OTHER ==
[2019-11-26 09:22] LABS: ALBUMIN 4.5 g/dL (3.2-5.5); ALKALINE PHOSPHATASE 52 IU/L (42-121); ALT ALANINE AMINOTRANSFERASE 19 IU/L (10-60); AST ASPARTATE AMINOTRANSFERASE 21 IU/L (10-42); BILIRUBIN,DIRECT 0.1 mg/dL (0.1-0.5); BILIRUBIN,TOTAL 0.8 mg/dL (0.2-1.0); CHOL/HDL RATIO 2.9 (<4.4); CHOLESTEROL 234 mg/dL; HDL CHOLESTEROL 80 mg/dL; LDL CHOLESTEROL,CALCULATED 137 mg/dL; LDL/HDL RATIO 1.7 (<4.4); TOTAL PROTEIN 6.9 g/dL (6.7-8.2); VLDL CHOLESTEROL 17 mg/dL
== END 2019-11-26 08:48 | disposition home or self-care (01) ==
LOC: LAB 08:47
PROVIDERS: ATTEND Internal Medicine Cardiovascular Disease
DX: E78.5 Hyperlipidemia, unspecified (principal)
CPT/HCPCS: 36415; 80061; 80076; 83721

== ENCOUNTER 2020-01-31 08:25 | Outpatient (CLI) | payer MEDICARE, OTHER ==
[2020-01-31 09:08] LABS: BASOPHILS # (AUTO) 0.1 10^3/uL (0.0-0.1); BASOPHILS % (AUTO) 0.8 %; EOSINOPHILS # (AUTO) 0.3 10^3/uL (0.0-0.7); EOSINOPHILS % (AUTO) 4.3 %; HGB - HEMOGLOBIN 14.6 g/dL (12.0-16.0); LYMPHOCYTES % (AUTO) 33.2 %; MEAN CORPUSCULAR HEMOGLOBIN 28.5 pg (27.0-31.0); MEAN CORPUSCULAR HGB CONC 31.9 g/dL (32.0-36.0); MEAN CORPUSCULAR VOLUME 89.1 fL (81.0-99.0); MEAN PLATELET VOLUME 9.7 fL (7.9-10.8); MONOCYTES # (AUTO) 0.7 10^3/uL (0.0-1.0); MONOCYTES % (AUTO) 11.6 %; NEUTROPHILS % (AUTO) 49.8 %; PLT - PLATELET COUNT 256 10^3/uL (130-450); RED BLOOD COUNT 5.13 10^6/uL (4.20-5.40); RED CELL DISTRIBUTION WIDTH 14.9 % (12.0-15.0); WHITE BLOOD COUNT 6.1 x10^3/uL (4.8-10.8)
[2020-01-31 09:11] LABS: ALBUMIN 4.6 g/dL (3.2-5.5); ALBUMIN/GLOBULIN RATIO 1.6 (1.0-2.2); BILIRUBIN,TOTAL 0.7 mg/dL (0.2-1.0); CALCIUM 9.2 mg/dL (8.5-10.3); CREATININE 0.7 mg/dL (0.4-1.0); TOTAL PROTEIN 7.4 g/dL (6.7-8.2)
== END 2020-01-31 08:26 | disposition home or self-care (01) ==
LOC: LAB 08:25
PROVIDERS: ATTEND Internal Medicine
DX: J84.9 Interstitial pulmonary disease, unspecified (principal); Z79.899 Other long term (current) drug therapy; R05 Cough; R06.09 Other forms of dyspnea
CPT/HCPCS: 36415; 80053; 85025

== ENCOUNTER 2020-05-05 09:39 | Outpatient (CLI) | payer MEDICARE, OTHER ==
[2020-05-05 09:56] LABS: BASOPHILS # (AUTO) 0.1 10^3/uL (0.0-0.1); BASOPHILS % (AUTO) 0.8 %; EOSINOPHILS # (AUTO) 0.2 10^3/uL (0.0-0.7); EOSINOPHILS % (AUTO) 3.3 %; HGB - HEMOGLOBIN 14.8 g/dL (12.0-16.0); LYMPHOCYTES # (AUTO) 1.6 10^3/uL (1.5-3.5); LYMPHOCYTES % (AUTO) 25.4 %; MEAN CORPUSCULAR HEMOGLOBIN 28.4 pg (27.0-31.0); MEAN CORPUSCULAR HGB CONC 31.5 g/dL (32.0-36.0); MEAN CORPUSCULAR VOLUME 90.2 fL (81.0-99.0); MEAN PLATELET VOLUME 8.9 fL (7.9-10.8); MONOCYTES # (AUTO) 0.9 10^3/uL (0.0-1.0); MONOCYTES % (AUTO) 13.8 %; NEUTROPHILS # (AUTO) 3.6 10^3/uL (1.5-6.6); NEUTROPHILS % (AUTO) 56.5 %; PLT - PLATELET COUNT 242 10^3/uL (130-450); RED BLOOD COUNT 5.21 10^6/uL (4.20-5.40); RED CELL DISTRIBUTION WIDTH 13.5 % (12.0-15.0); WHITE BLOOD COUNT 6.3 x10^3/uL (4.8-10.8)
[2020-05-05 10:07] LABS: ALBUMIN 4.6 g/dL (3.2-5.5); ALBUMIN/GLOBULIN RATIO 1.7 (1.0-2.2); CALCIUM 9.7 mg/dL (8.5-10.3); CREATININE 0.8 mg/dL (0.4-1.0); TOTAL PROTEIN 7.3 g/dL (6.7-8.2)
== END 2020-05-05 09:40 | disposition home or self-care (01) ==
LOC: LAB 09:39
PROVIDERS: ATTEND Internal Medicine
DX: D84.8 Other specified immunodeficiencies (principal); Z79.899 Other long term (current) drug therapy; J84.9 Interstitial pulmonary disease, unspecified
CPT/HCPCS: 36415; 80053; 85025

== ENCOUNTER 2020-07-03 08:00 | Outpatient (CLI) | payer MEDICARE, OTHER ==
[2020-07-03 08:16] LABS: BASOPHILS % (AUTO) 0.5 %; EOSINOPHILS # (AUTO) 0.2 10^3/uL (0.0-0.7); EOSINOPHILS % (AUTO) 3.4 %; HGB - HEMOGLOBIN 14.4 g/dL (12.0-16.0); LYMPHOCYTES # (AUTO) 1.5 10^3/uL (1.5-3.5); MEAN CORPUSCULAR HEMOGLOBIN 30.5 pg (27.0-31.0); MEAN CORPUSCULAR HGB CONC 32.2 g/dL (32.0-36.0); MEAN CORPUSCULAR VOLUME 94.7 fL (81.0-99.0); MEAN PLATELET VOLUME 8.7 fL (7.9-10.8); MONOCYTES # (AUTO) 0.7 10^3/uL (0.0-1.0); MONOCYTES % (AUTO) 12.3 %; NEUTROPHILS # (AUTO) 3.4 10^3/uL (1.5-6.6); NEUTROPHILS % (AUTO) 57.6 %; PLT - PLATELET COUNT 244 10^3/uL (130-450); RED BLOOD COUNT 4.72 10^6/uL (4.20-5.40); RED CELL DISTRIBUTION WIDTH 14.1 % (12.0-15.0); WHITE BLOOD COUNT 5.9 x10^3/uL (4.8-10.8)
[2020-07-03 08:26] LABS: ALBUMIN 4.6 g/dL (3.2-5.5); ALBUMIN/GLOBULIN RATIO 1.9 (1.0-2.2); BILIRUBIN,TOTAL 0.7 mg/dL (0.2-1.0); CALCIUM 9.5 mg/dL (8.5-10.3); CREATININE 0.8 mg/dL (0.4-1.0)
== END 2020-07-03 08:01 | disposition home or self-care (01) ==
LOC: LAB 08:00
PROVIDERS: ATTEND Internal Medicine
DX: D84.9 Immunodeficiency, unspecified (principal); Z79.899 Other long term (current) drug therapy
CPT/HCPCS: 36415; 80053; 85025

== ENCOUNTER 2020-07-06 14:59 | Outpatient (CLI) | payer MEDICARE, OTHER | END 2020-07-06 15:00 | disposition critical access hospital (66) | LOC: EMS 14:59 | PROVIDERS: ATTEND Surgery | DX: R42 Dizziness and giddiness (principal); R06.02 Shortness of breath; R53.83 Other fatigue | CPT/HCPCS: A0425; A0429 ==

== ENCOUNTER 2020-07-06 15:15 | Emergency (ER) | payer MEDICARE, OTHER ==
[2020-07-06 16:07] LABS: BASOPHILS % (AUTO) 0.5 %; EOSINOPHILS # (AUTO) 0.2 10^3/uL (0.0-0.7); EOSINOPHILS % (AUTO) 2.7 %; HGB - HEMOGLOBIN 13.9 g/dL (12.0-16.0); LYMPHOCYTES # (AUTO) 1.6 10^3/uL (1.5-3.5); LYMPHOCYTES % (AUTO) 21.4 %; MEAN CORPUSCULAR HEMOGLOBIN 30.3 pg (27.0-31.0); MEAN CORPUSCULAR HGB CONC 33.3 g/dL (32.0-36.0); MEAN CORPUSCULAR VOLUME 91.3 fL (81.0-99.0); MEAN PLATELET VOLUME 8.6 fL (7.9-10.8); MONOCYTES # (AUTO) 1.1 10^3/uL (0.0-1.0); MONOCYTES % (AUTO) 14.6 %; NEUTROPHILS # (AUTO) 4.5 10^3/uL (1.5-6.6); NEUTROPHILS % (AUTO) 60.4 %; PLT - PLATELET COUNT 236 10^3/uL (130-450); RED BLOOD COUNT 4.58 10^6/uL (4.20-5.40); RED CELL DISTRIBUTION WIDTH 13.8 % (12.0-15.0); WHITE BLOOD COUNT 7.5 x10^3/uL (4.8-10.8)
--- NOTE | 2020-07-06 16:15 | ED Physician Documentation ---
History of Present Illness - Stated complaint Stated Complaint: DIZZY/SOA - Chief complaint Chief Complaint: Neuro - History obtained from History obtained from: Patient - History of Present Illness Timing: Today Pain level max: 0 Pain level now: 0 - Additonal information Additional information: 85-year-old female states that she felt like she was having shortness of breath today. This is an ongoing issue that has been ongoing for the past several years. Nothing makes it better or worse. Has been under increasing stress lately and is selling her house today. She also had chest tightness which is not unusual for her either. She states that she had a normal "full cardiac work-up" approximately [address] Greene, cardiology in [place]. Patient is currently asymptomatic. Symptoms started approximately 4 hours prior to arrival. Review of Systems Ten Systems: 10 systems reviewed and negative Constitutional: denies: Fever, Chills Ears: denies: Ear pain Nose: denies: Rhinorrhea / runny nose, Congestion Throat: denies: Sore throat Cardiac: reports: Chest pain / pressure (Tightness, nonradiating). 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 : None HEENT: Glaucoma, Other Psych: Anxiety Musculoskeletal: Osteoarthritis Derm: None - Past Surgical History Past Surgical History: Yes General: Appendectomy, Colonoscopy Ortho: Spine surgery HEENT: Cataracts - Present Medications Home Medications: Ambulatory Orders Medication Instructions Recorded Confirmed Sertraline [Zoloft] 50 mg PO DAILY PM 03/06/18 09/05/19 amLODIPine [Norvasc] 5 mg PO DAILY 03/06/18 09/05/19 ALPRAZolam [Alprazolam] 0.5 mg PO DAILY 03/11/19 09/05/19 Simvastatin 20 mg PO DAILY 03/11/19 09/05/19 Amitriptyline HCl 5 mg PO DAILY 09/05/19 09/05/19 Calcium Carbonate/Vitamin D3 1 tab PO DAILY 09/05/19 09/05/19 [Calcium 500-Vit D3 200 Tablet] Cholecalciferol (Vitamin D3) 1 cap PO DAILY 09/05/19 09/05/19 [Vitamin D3] [place]-3/Dha/Epa/Fish Oil [Fish Oil 1 cap PO DAILY 09/05/19 09/05/19 1,000 mg Softgel] - Allergies Allergies/Adverse Reactions: Allergies Allergy/AdvReac Type Severity Reaction Status Date / Time Penicillins Allergy Hives Verified 07/06/20 15:25 Jbfsqnl-Ptt-Abl Reductase Allergy Unknown Verified 07/06/20 15:25 Inhibitor Sulfa (Sulfonamide Allergy Nausea Verified 07/06/20 15:25 Antibiotics) trazodone Allergy Unknown Verified 07/06/20 15:25 aspirin AdvReac Unknown Verified 07/06/20 15:25 codeine AdvReac Unknown Verified 07/06/20 15:25 - Social History Does the pt smoke?: No Smoking Status: Never smoker Does the pt drink ETOH?: Yes Does the pt have substance abuse?: No - Immunizations Immunizations are current?: Yes - POLST Patient has POLST: No PD ED PE NORMAL - Vitals Vital signs reviewed: Yes - General General: Alert and oriented X 3, No acute distress, Well developed/nourished - HEENT HEENT: PERRL, Moist mucous membranes - Neck Neck: Supple, no meningeal sign - Cardiac Cardiac: RRR, Strong equal pulses - Respiratory Respiratory: No respiratory distress, Clear bilaterally - Abdomen Abdomen: Soft, Non tender, Non distended - Derm Derm: Warm and dry - Extremities Extremities: No edema, No calf tenderness / cord - Neuro Neuro: Alert and oriented X 3 - Psych Psych: Normal mood, Normal affect Results - Vitals Vitals: Vital Signs - 24 hr 07/06/20 07/06/20 07/06/20 15:20 17:28 18:24 Temperature 36.8 C Heart Rate 83 73 80 Respiratory 19 24 18 Rate Blood Pressure 135/79 H 122/70 123/75 O2 Saturation 100 95 99 Oxygen O2 Source Room air - EKG (time done) 1546 Rate: Rate (enter#) (69) Rhythm: NSR [place]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) Intervals: 1st degree AVB QRS: Normal, LVH Ischemia: Normal ST segments - Labs Labs: Laboratory Tests 07/06/20 07/06/20 07/06/20 15:40 15:50 15:50 WBC 7.5 RBC 4.58 Hgb 13.9 Hct 41.8 MCV 91.3 MCH 30.3 MCHC 33.3 RDW 13.8 Plt Count 236 MPV 8.6 Neut # (Auto) 4.5 Lymph # (Auto) 1.6 [place] # (Auto) 1.1 H Eos # (Auto) 0.2 Baso # (Auto) 0.0 Absolute Nucleated RBC 0.00 Nucleated RBC % 0.0 Sodium 135 Potassium 3.6 Chloride 98 L Carbon Dioxide 26 Anion Gap 11.0 BUN 18 Creatinine 0.8 Estimated GFR (MDRD) 68 L Glucose 103 H Calcium 9.6 Total Bilirubin 0.7 AST 22 ALT 23 Alkaline Phosphatase 58 Troponin I High Sens 9.6 Total Protein 6.7 Albumin 4.2 Globulin 2.5 Albumin/Globulin Ratio 1.7 Lipase 37 07/06/20 15:50 WBC RBC Hgb Hct MCV MCH MCHC RDW Plt Count MPV Neut # (Auto) Lymph # (Auto) [place] # (Auto) Eos # (Auto) Baso # (Auto) Absolute Nucleated RBC Nucleated RBC % Sodium Potassium Chloride Carbon Dioxide Anion Gap BUN Creatinine Estimated GFR (MDRD) Glucose Calcium Total Bilirubin AST ALT Alkaline Phosphatase Troponin I High Sens 8.6 Total Protein Albumin Globulin Albumin/Globulin Ratio Lipase - Rads (name of study) cxr Radiology: Prelim report reviewed, EMP read contemporaneously, See rad report (Subtle streaky opacity at the left lung base, likely atelectasis. Lungs otherwise appear clear) PD MEDICAL DECISION MAKING - ED course Complexity details: reviewed results, re-evaluated patient, considered differential, d/w patient ED course: Patient with atypical chest pain today. Negative high-sensitivity troponin x2. Had a "normal cardiac work-up" 9 months ago with a beam department supervisor. No evidence of acute coronary syndrome, unstable angina. Patient is asymptomatic here. She will follow-up closely with her doctor for further care. No evidence of pulmonary embolus, pneumothorax, aortic dissection. Patient counseled regarding signs and symptoms for which I believe and urgent re-evaluation would be necessary. Patient with good understanding of and agreement to plan and is comfortable going home at this time This document was made in part using voice recognition software. While efforts are made to proofread this document, sound alike and grammatical errors may occur. Departure - Departure Disposition: 01 Home, Self Care Clinical Impression: Dyspnea Qualifiers: Dyspnea type: unspecified Qualified Code(s): R06.00 - Dyspnea, unspecified Chest pain Qualifiers: Chest pain type: unspecified Qualified Code(s): R07.9 - Chest pain, unspecified Condition: Good Instructions: ED Chest Pain Atypical Unkn Cause, ED Dyspnea Shortness of Breath Follow-Up: Kendra Thornton PA [Primary Care Provider] - Within 3 Days Comments: Your test did not reveal any acute abnormalities today. Follow-up with your doctor for further care. Return if you worsen Discharge Date/Time: 07/06/20 18:31
--- NOTE | 2020-07-06 16:20 | XRAY Report ---
PROCEDURE: Chest 1 View X-Ray INDICATIONS: Chest Pain TECHNIQUE: One view of the chest was acquired. COMPARISON: CXR 03/11/2019. FINDINGS: Surgical changes and devices: None. Lungs and pleura: No pleural effusions or pneumothorax. Minimal streaky opacity at the left lung bas e which has the appearance of atelectasis. Mediastinum: Mediastinal contours appear normal and unchanged. Heart size is normal. Bones and chest wall: No suspicious bony lesions. Overlying soft tissues appear unremarkable. IMPRESSION: Subtle streaky opacity at left lung base likely atelectasis. Lungs otherwise appear clear. Reviewed by: Kem Davison MD on 07/06/2020 4:18 PM PDT Approved by: Kem Davison MD on 07/06/2020 4:18 PM PDT Station ID: [id number]
[2020-07-06 16:21] LABS: ALBUMIN 4.2 g/dL (3.2-5.5); ALBUMIN/GLOBULIN RATIO 1.7 (1.0-2.2); BILIRUBIN,TOTAL 0.7 mg/dL (0.2-1.0); CALCIUM 9.6 mg/dL (8.5-10.3); CREATININE 0.8 mg/dL (0.4-1.0); TOTAL PROTEIN 6.7 g/dL (6.7-8.2)
[2020-07-06 18:26] VITALS: BP 123/75
== END 2020-07-06 18:31 | disposition home or self-care (01) ==
LOC: EDBD → EDUNIT# → ED 15:15
DX: R06.02 Shortness of breath (principal); R07.89 Other chest pain; I44.0 Atrioventricular block, first degree; I44.4 Left anterior fascicular block; I10 Essential (primary) hypertension
CPT/HCPCS: 36415; 71045; 80053; 83690; 84484; 85025; 93005; 99284

== ENCOUNTER 2020-09-07 08:49 | Outpatient (CLI) | payer MEDICARE, OTHER ==
[2020-09-07 09:19] LABS: BASOPHILS % (AUTO) 0.7 %; EOSINOPHILS # (AUTO) 0.3 10^3/uL (0.0-0.7); EOSINOPHILS % (AUTO) 4.6 %; HGB - HEMOGLOBIN 13.4 g/dL (12.0-16.0); LYMPHOCYTES # (AUTO) 1.1 10^3/uL (1.5-3.5); LYMPHOCYTES % (AUTO) 20.6 %; MEAN CORPUSCULAR HEMOGLOBIN 28.9 pg (27.0-31.0); MEAN CORPUSCULAR HGB CONC 31.2 g/dL (32.0-36.0); MEAN CORPUSCULAR VOLUME 92.7 fL (81.0-99.0); MONOCYTES # (AUTO) 0.7 10^3/uL (0.0-1.0); MONOCYTES % (AUTO) 13.6 %; NEUTROPHILS # (AUTO) 3.3 10^3/uL (1.5-6.6); NEUTROPHILS % (AUTO) 59.9 %; PLT - PLATELET COUNT 207 10^3/uL (130-450); RED BLOOD COUNT 4.63 10^6/uL (4.20-5.40); RED CELL DISTRIBUTION WIDTH 12.8 % (12.0-15.0); WHITE BLOOD COUNT 5.4 x10^3/uL (4.8-10.8)
[2020-09-07 09:35] LABS: ALBUMIN 4.3 g/dL (3.2-5.5); ALBUMIN/GLOBULIN RATIO 1.7 (1.0-2.2); BILIRUBIN,TOTAL 0.6 mg/dL (0.2-1.0); CALCIUM 9.4 mg/dL (8.5-10.3); CREATININE 0.7 mg/dL (0.4-1.0); TOTAL PROTEIN 6.8 g/dL (6.7-8.2)
== END 2020-09-07 08:50 | disposition home or self-care (01) ==
LOC: LAB 08:49
PROVIDERS: ATTEND Internal Medicine
DX: J84.9 Interstitial pulmonary disease, unspecified (principal); Z79.899 Other long term (current) drug therapy
CPT/HCPCS: 36415; 80053; 85025

== ENCOUNTER 2020-09-14 07:00 | Outpatient (CLI) | payer MEDICARE, OTHER | END 2020-09-14 23:59 | disposition home or self-care (01) | LOC: LAB.R 07:00 | PROVIDERS: ATTEND Nurse Practitioner Family | DX: R30.0 Dysuria (principal) | CPT/HCPCS: 87086 ==

== ENCOUNTER 2020-09-17 07:00 | Outpatient (CLI) | payer MEDICARE, OTHER | END 2020-09-17 23:59 | disposition home or self-care (01) | LOC: LAB.R 07:00 | PROVIDERS: ATTEND Family Medicine | DX: R30.0 Dysuria (principal) | CPT/HCPCS: 87086 ==

== ENCOUNTER 2020-09-24 08:00 | Outpatient (CLI) | payer MEDICARE, OTHER | END 2020-09-24 23:59 | disposition home or self-care (01) | LOC: LAB.WCP 08:00 | PROVIDERS: ATTEND Family Medicine | DX: R30.0 Dysuria (principal) | CPT/HCPCS: 81002 ==

== ENCOUNTER 2020-10-22 07:52 | Emergency (ER) | payer MEDICARE, OTHER ==
--- NOTE | 2020-10-22 08:34 | ED Physician Documentation ---
PD HPI ABD PAIN - Stated complaint Stated Complaint: FEMALE - Chief complaint Chief Complaint: Abd Pain - History obtained from History obtained from: Patient - History of Present Illness Timing - onset: How many months ago (1) Timing - details: Gradual onset, Intermittant Pain level max: 3 Pain level now: 2 Quality: Aching, Pain Location: RLQ, Suprapubic, LLQ Radiation: No: Chest, , Lower back, Left flank, Left shoulder, Right flank, Right shoulder, Upper back Improved by: Laying still Worsened by: Moving, Palpation Associated symptoms: No: Fever, Nausea, Vomiting, Hematemesis, Diarrhea, Constipation, Melena, Hematochezia, Dysuria, Hematuria, Chest pain, Vaginal bleeding, Vaginal dc - Additional information Additional information: 85-year-old female presents to the emergency department lower abdominal pain today. She states that it started about a month ago. It will last for few days and then go away. She has had 2 negative urine cultures. She has been placed on antibiotics twice. She states she called the clinic today, and was told to come here for evaluation. No fevers. No chills. No diarrhea. No constip ation. 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 : None HEENT: Glaucoma, Other Psych: Anxiety Musculoskeletal: Osteoarthritis Derm: None - Past Surgical History Past Surgical History: Yes General: Appendectomy, Colonoscopy Ortho: Spine surgery HEENT: Cataracts - Present Medications Home Medications: Ambulatory Orders Medication Instructions Recorded Confirmed Sertraline [Zoloft] 50 mg PO DAILY PM 03/06/18 09/05/19 amLODIPine [Norvasc] 5 mg PO DAILY 03/06/18 09/05/19 ALPRAZolam [Alprazolam] 0.5 mg PO DAILY 03/11/19 09/05/19 Simvastatin 20 mg PO DAILY 03/11/19 09/05/19 Amitriptyline HCl 5 mg PO DAILY 09/05/19 09/05/19 Calcium Carbonate/Vitamin D3 1 tab PO DAILY 09/05/19 09/05/19 [Calcium 500-Vit D3 200 Tablet] Cholecalciferol (Vitamin D3) 1 cap PO DAILY 09/05/19 09/05/19 [Vitamin D3] [place]-3/Dha/Epa/Fish Oil [Fish Oil 1 cap PO DAILY 09/05/19 09/05/19 1,000 mg Softgel] Cefdinir 300 mg PO BID #14 capsule 10/22/20 - Allergies Allergies/Adverse Reactions: Allergies Allergy/AdvReac Type Severity Reaction Status Date / Time Penicillins Allergy Hives Verified 10/22/20 08:09 Zlqhtuw-Dae-Vfv Reductase Allergy Unknown Verified 10/22/20 08:09 Inhibitor Sulfa (Sulfonamide Allergy Nausea Verified 10/22/20 08:09 Antibiotics) trazodone Allergy Unknown Verified 10/22/20 08:09 aspirin AdvReac Unknown Verified 10/22/20 08:09 codeine AdvReac Unknown Verified 10/22/20 08:09 - Social History Does the pt smoke?: No Smoking Status: Never smoker Does the pt drink ETOH?: Yes Does the pt have substance abuse?: No - Immunizations Immunizations are current?: Yes - POLST Patient has POLST: No PD ED PE NORMAL - Vitals Vital signs reviewed: Yes - General General: Alert and oriented X 3, No acute distress, Well developed/nourished - HEENT HEENT: Moist mucous membranes - Neck Neck: Supple, no meningeal sign - Cardiac Cardiac: RRR, Strong equal pulses - Respiratory Respiratory: No respiratory distress, Clear bilaterally - Abdomen Abdomen: Normal bowel sounds, Soft, Non distended, Other (mild TTP LLQ, no peritoneal signs, o/w benign exam) - Derm Derm: Warm and dry - Extremities Extremities: No edema - Neuro Neuro: Alert and oriented X 3 - Psych Psych: Normal mood, Normal affect Results - Vitals Vitals: Vital Signs - 24 hr 10/22/20 10/22/20 07:56 09:08 Temperature 36.3 C L Heart Rate 81 56 L Respiratory 18 18 Rate Blood Pressure 132/81 H 153/78 H O2 Saturation 98 100 Oxygen O2 Source Room air - Labs Labs: Laboratory Tests 10/22/20 10/22/2020 08:30 08:30 09:03 WBC 5.4 RBC 4.85 Hgb 14.1 Hct 43.2 MCV 89.1 MCH 29.1 MCHC 32.6 RDW 12.7 Plt Count 218 MPV 9.0 Neut # (Auto) 3.1 Lymph # (Auto) 1.2 L [place] # (Auto) 0.8 Eos # (Auto) 0.2 Baso # (Auto) 0.0 Absolute Nucleated RBC 0.00 Nucleated RBC % 0.0 Sodium 136 Potassium 3.5 Chloride 101 Carbon Dioxide 23 Anion Gap 12.0 BUN 16 Creatinine 0.7 Estimated GFR (MDRD) 80 L Glucose 105 H Calcium 9.3 Total Bilirubin 0.7 AST 24 ALT 22 Alkaline Phosphatase 63 Total Protein 6.9 Albumin 4.3 Globulin 2.6 Albumin/Globulin Ratio 1.7 Lipase 39 Urine Color YELLOW Urine Clarity SL. CLOUDY Urine pH 6.5 Ur Specific [place] 1.020 Urine Protein NEGATIVE Urine Glucose (UA) NEGATIVE Urine Ketones NEGATIVE Urine Occult Blood TRACE-INTA Urine Nitrite NEGATIVE Urine Bilirubin NEGATIVE Urine Urobilinogen 0.2 (NORMAL) Ur Leukocyte Esterase SMALL H Urine RBC 0-5 Urine WBC 11-25 H Ur Squamous Epith Cells FEW Squamous Urine Bacteria Moderate H Ur Microscopic Review INDICATED Urine Culture Comments INDICATED - Rads (name of study) CT abd/pelvis Radiology: Prelim report reviewed, EMP read contemporaneously, See rad report (1. No acute process. No explanation for left lower quadrant abdominal pain. 2. Cholelithiasis without evidence of cholecystitis. 3. Appendix not seen. No evidence of appendicitis. 4. Uterine fibroids. ) PD MEDICAL DECISION MAKING - ED course Complexity details: reviewed results, re-evaluated patient, considered differential, d/w patient ED course: Patient with what appears to be UTI. No acute findings on laboratory testing, CT scan, other than the urinalysis. Will treat for UTI. Patient counseled regarding signs and symptoms for which I believe and urgent re-evaluation would be necessary. Patient with good understanding of and agreement to plan and is comfortable going home at this time This document was made in part using voice recognition software. While efforts are made to proofread this document, sound alike and grammatical errors may occur. Departure - Departure Disposition: 01 Home, Self Care Clinical Impression: UTI (urinary tract infection) Qualifiers: Urinary tract infection type: acute cystitis Hematuria presence: without hematuria Qualified Code(s): N30.00 - Acute cystitis without hematuria Condition: Good Instructions: ED UTI Cystitis Female Follow-Up: Angel Bird MD [Primary Care Provider] - Within 1 week Prescriptions: Cefdinir 300 mg PO BID #14 capsule Comments: Take the new antibiotics until gone. Return if you worsen. Follow-up with your doctor to ensure resolution. Your prescription was sent to [facility] in [place] today
[2020-10-22] MEDS ORDERED: IOVERSOL 320 100 ML VIAL IVP ONE ×2 (08:39→09:48)
[2020-10-22 08:47] LABS: BASOPHILS % (AUTO) 0.7 %; EOSINOPHILS # (AUTO) 0.2 10^3/uL (0.0-0.7); EOSINOPHILS % (AUTO) 3.7 %; HGB - HEMOGLOBIN 14.1 g/dL (12.0-16.0); LYMPHOCYTES # (AUTO) 1.2 10^3/uL (1.5-3.5); LYMPHOCYTES % (AUTO) 22.9 %; MEAN CORPUSCULAR HEMOGLOBIN 29.1 pg (27.0-31.0); MEAN CORPUSCULAR HGB CONC 32.6 g/dL (32.0-36.0); MEAN CORPUSCULAR VOLUME 89.1 fL (81.0-99.0); MONOCYTES # (AUTO) 0.8 10^3/uL (0.0-1.0); MONOCYTES % (AUTO) 14.8 %; NEUTROPHILS # (AUTO) 3.1 10^3/uL (1.5-6.6); NEUTROPHILS % (AUTO) 57.5 %; PLT - PLATELET COUNT 218 10^3/uL (130-450); RED BLOOD COUNT 4.85 10^6/uL (4.20-5.40); RED CELL DISTRIBUTION WIDTH 12.7 % (12.0-15.0); WHITE BLOOD COUNT 5.4 x10^3/uL (4.8-10.8)
[2020-10-22 09:12] LABS: ALBUMIN 4.3 g/dL (3.2-5.5); ALBUMIN/GLOBULIN RATIO 1.7 (1.0-2.2); BILIRUBIN,TOTAL 0.7 mg/dL (0.2-1.0); CALCIUM 9.3 mg/dL (8.5-10.3); CREATININE 0.7 mg/dL (0.4-1.0); TOTAL PROTEIN 6.9 g/dL (6.7-8.2)
[2020-10-22 09:18] LABS: BILIRUBIN,URINE NEGATIVE (NEGATIVE); GLUCOSE, URINE (UA) NEGATIVE (NEGATIVE); KETONES,URINE (UA) NEGATIVE (NEGATIVE); LEUKOCYTE ESTERASE, URINE SMALL (NEGATIVE); NITRITE,URINE NEGATIVE (NEGATIVE); OCCULT BLOOD,URINE TRACE-INTA (NEGATIVE); PH,URINE 6.5 PH (5.0-7.5); PROTEIN,URINE NEGATIVE (NEGATIVE); UROBILINOGEN,URINE 0.2 (NORMAL) E.U./dL (NORMAL)
[2020-10-22 09:20] LABS: CLARITY,URINE SL. CLOUDY (CLEAR)
--- NOTE | 2020-10-22 09:48 | CT Report ---
PROCEDURE: Abdomen/Pelvis W INDICATIONS: LLQ abd pain CONTRAST: IV CONTRAST: Optiray 320 ml: 100 PO CONTRAST: *NO PO CONTRAST TECHNIQUE: After the administration of IV contrast, 5 mm thick sections acquired from the diaphragms to the symp hysis. 5 mm thick coronal and sagittal reformats were acquired. For radiation dose reduction, the f ollowing was used: automated exposure control, adjustment of mA and/or kV according to patient size. COMPARISON: None. FINDINGS: Image quality: Excellent. ABDOMEN: Lung bases: Lung bases are clear. Heart size is normal. Solid organs: Several small cysts within the right hepatic lobe posteriorly. Liver and spleen are ot herwise normal in size and enhancement. Gallbladder demonstrates multiple intermediate density foci within its lumen. No evidence of gallbladder wall thickening. Biliary system is non dilated. Pancre as enhances normally. No adrenal nodules. There are 2 adjacent cysts within the left interpolar kid kecia anteriorly spanning roughly 50 mm. Kidneys demonstrate otherwise normal size and enhancement, wit hout hydronephrosis. Peritoneum and bowel: Moderate hiatal hernia. Bowel loops demonstrate normal wall thickness and lisa lópez. No free fluid or air. Nodes and vessels: No retroperitoneal or mesenteric adenopathy by size criteria. Aorta and inferior vena cava are normal in size. Miscellaneous: No ventral hernias. PELVIS: Genitourinary: Bladder wall thickness is normal. Calcifications within the uterus are present. Miscellaneous: No inguinal hernias or adenopathy. Bones: No suspicious bony lesions. No vertebral body compression fractures. IMPRESSION: 1. No acute process. No explanation for left lower quadrant abdominal pain. 2. Cholelithiasis without evidence of cholecystitis. 3. Appendix not seen. No evidence of appendicitis. 4. Uterine fibroids. Reviewed by: Mp Taylor MD on 10/22/2020 9:47 AM PST Approved by: Mp Taylor MD on 10/22/2020 9:47 AM PST Station ID: [id number]
[2020-10-22 09:57] LABS: BACTERIA,URINE Moderate /HPF (None Seen); RBC,URINE 0-5 /HPF (0-5); SQUAMOUS EPITHELIAL CELL,UR FEW Squamous (<= Few)
[2020-10-22 10:17] VITALS: BP 150/82
== END 2020-10-22 10:15 | disposition home or self-care (01) ==
LOC: ED 07:52
DX: N30.00 Acute cystitis without hematuria (principal); K80.20 Calculus of gallbladder without cholecystitis without obstruction; D25.9 Leiomyoma of uterus, unspecified; K44.9 Diaphragmatic hernia without obstruction or gangrene; K21.9 Gastro-esophageal reflux disease without esophagitis; I10 Essential (primary) hypertension
CPT/HCPCS: 36415; 74177; 80053; 81001; 83690; 85025; 87086; 87181; 99284; Q9967; 81003

== ENCOUNTER 2021-01-05 08:40 | Outpatient (CLI) | payer MEDICARE, OTHER ==
[2021-01-05 08:51] LABS: BASOPHILS # (AUTO) 0.1 10^3/uL (0.0-0.1); BASOPHILS % (AUTO) 0.8 %; EOSINOPHILS # (AUTO) 0.2 10^3/uL (0.0-0.7); HGB - HEMOGLOBIN 15.3 g/dL (12.0-16.0); LYMPHOCYTES # (AUTO) 1.8 10^3/uL (1.5-3.5); LYMPHOCYTES % (AUTO) 30.1 %; MEAN CORPUSCULAR HGB CONC 31.4 g/dL (32.0-36.0); MEAN CORPUSCULAR VOLUME 89.2 fL (81.0-99.0); MONOCYTES # (AUTO) 0.8 10^3/uL (0.0-1.0); MONOCYTES % (AUTO) 12.9 %; NEUTROPHILS # (AUTO) 3.1 10^3/uL (1.5-6.6); PLT - PLATELET COUNT 228 10^3/uL (130-450); RED BLOOD COUNT 5.46 10^6/uL (4.20-5.40); RED CELL DISTRIBUTION WIDTH 13.4 % (12.0-15.0); WHITE BLOOD COUNT 5.9 x10^3/uL (4.8-10.8)
[2021-01-05 09:05] LABS: ALBUMIN 4.5 g/dL (3.2-5.5); ALBUMIN/GLOBULIN RATIO 1.7 (1.0-2.2); BILIRUBIN,TOTAL 1.1 mg/dL (0.2-1.0); CALCIUM 9.9 mg/dL (8.5-10.3); CREATININE 0.7 mg/dL (0.4-1.0); TOTAL PROTEIN 7.2 g/dL (6.7-8.2)
== END 2021-01-05 08:41 | disposition home or self-care (01) ==
LOC: LAB 08:40
PROVIDERS: ATTEND Internal Medicine
DX: J84.9 Interstitial pulmonary disease, unspecified (principal); Z79.899 Other long term (current) drug therapy
CPT/HCPCS: 36415; 80053; 85025

== ENCOUNTER 2021-01-19 12:23 | Outpatient (CLI) | payer MEDICARE, OTHER | END 2021-01-19 12:24 | disposition critical access hospital (66) | LOC: EMS 12:23 | PROVIDERS: ATTEND Emergency Medicine | DX: I10 Essential (primary) hypertension (principal); R51.9 Headache, unspecified | CPT/HCPCS: A0425; A0429 ==

== ENCOUNTER 2021-01-19 12:47 | Emergency (ER) | payer MEDICARE, OTHER ==
[2021-01-19 13:49] LABS: BASOPHILS % (AUTO) 0.6 %; EOSINOPHILS # (AUTO) 0.2 10^3/uL (0.0-0.7); EOSINOPHILS % (AUTO) 2.9 %; HCT - HEMATOCRIT 43.5 % (37.0-47.0); HGB - HEMOGLOBIN 14.3 g/dL (12.0-16.0); LYMPHOCYTES # (AUTO) 1.1 10^3/uL (1.5-3.5); LYMPHOCYTES % (AUTO) 17.2 %; MEAN CORPUSCULAR HEMOGLOBIN 28.8 pg (27.0-31.0); MEAN CORPUSCULAR HGB CONC 32.9 g/dL (32.0-36.0); MEAN CORPUSCULAR VOLUME 87.5 fL (81.0-99.0); MONOCYTES # (AUTO) 0.8 10^3/uL (0.0-1.0); MONOCYTES % (AUTO) 12.1 %; NEUTROPHILS # (AUTO) 4.2 10^3/uL (1.5-6.6); PLT - PLATELET COUNT 221 10^3/uL (130-450); RED BLOOD COUNT 4.97 10^6/uL (4.20-5.40); RED CELL DISTRIBUTION WIDTH 13.3 % (12.0-15.0); WHITE BLOOD COUNT 6.3 x10^3/uL (4.8-10.8)
[2021-01-19 14:12] LABS: ALBUMIN 4.2 g/dL (3.2-5.5); ALBUMIN/GLOBULIN RATIO 1.8 (1.0-2.2); BILIRUBIN,TOTAL 0.7 mg/dL (0.2-1.0); CALCIUM 10.4 mg/dL (8.5-10.3); CREATININE 0.6 mg/dL (0.4-1.0); POTASSIUM 3.3 mmol/L (3.5-5.0); TOTAL PROTEIN 6.6 g/dL (6.7-8.2)
--- NOTE | 2021-01-19 14:28 | ED Physician Documentation ---
History of Present Illness - Stated complaint Stated Complaint: AMS - Chief complaint Chief Complaint: Cardiac - Additonal information Additional information: 85-year-old female presents the emergency department for evaluation of chest pain and [place] pressure as well as anxiety and heart palpitations. She reports that approximately 6 weeks ago her dose of amlodipine was stopped because her blood pressure had been in such good control. However since then she has noticed that when she wakes up in the morning she often has a sensation of a pounding chest with some chest pressure this usually passes after a few minutes. However over the last 4 days she has had more persistent chest pressure. It does not radiate no jaw or arm pain. Denies any nausea vomiting or diarrhea. She has an unclear diagnosis of a lung problem for which she was started on CellCept approximately 18 months ago. Prior to initiation of CellCept she did have an echo and stress test with her mitten stitcher through the [facility] that showed no acute findings. Review of Systems Constitutional: denies: Fever, Chills Eyes: reports: Reviewed and negative Ears: reports: Reviewed and negative Nose: reports: Reviewed and negative Throat: reports: Reviewed and negative Cardiac: reports: Chest pain / pressure, Palpitations. denies: Pedal edema, Calf pain Respiratory: reports: Dyspnea. 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 : None HEENT: Glaucoma, Other Psych: Anxiety Musculoskeletal: Osteoarthritis Derm: None - Past Surgical History Past Surgical History: Yes General: Appendectomy, Colonoscopy Ortho: Spine surgery HEENT: Cataracts - Present Medications Home Medications: Ambulatory Orders Medication Instructions Recorded Confirmed Sertraline [Zoloft] 50 mg PO DAILY PM 03/06/18 09/05/19 amLODIPine [Norvasc] 5 mg PO DAILY 03/06/18 09/05/19 ALPRAZolam [Alprazolam] 0.5 mg PO DAILY 03/11/19 09/05/19 Simvastatin 20 mg PO DAILY 03/11/19 09/05/19 Amitriptyline HCl 5 mg PO DAILY 09/05/19 09/05/19 Calcium Carbonate/Vitamin D3 1 tab PO DAILY 09/05/19 09/05/19 [Calcium 500-Vit D3 200 Tablet] Cholecalciferol (Vitamin D3) 1 cap PO DAILY 09/05/19 09/05/19 [Vitamin D3] Rice-3/Dha/Epa/Fish Oil [Fish Oil 1 cap PO DAILY 09/05/19 09/05/19 1,000 mg Softgel] Cefdinir 300 mg PO BID #14 capsule 10/22/20 - Allergies Allergies/Adverse Reactions: Allergies Allergy/AdvReac Type Severity Reaction Status Date / Time Penicillins Allergy Hives Verified 10/22/20 08:09 Awuqptk-Rec-Sro Reductase Allergy Unknown Verified 10/22/20 08:09 Inhibitor Sulfa (Sulfonamide Allergy Nausea Verified 10/22/20 08:09 Antibiotics) trazodone Allergy Unknown Verified 10/22/20 08:09 aspirin AdvReac Unknown Verified 10/22/20 08:09 codeine AdvReac Unknown Verified 10/22/20 08:09 - Social History Does the pt smoke?: No Smoking Status: Never smoker Does the pt drink ETOH?: Yes Does the pt have substance abuse?: No - Immunizations Immunizations are current?: Yes - POLST Patient has POLST: No Results - Vitals Vitals: Vital Signs - 24 hr 01/19/21 01/19/21 12:57 13:26 Temperature 36.8 C 37.0 C Heart Rate 77 67 Respiratory 16 20 Rate Blood Pressure 144/120 H 141/81 H O2 Saturation 96 95 Oxygen O2 Source Room air - EKG (time done) 1300 Rate: Rate (enter#) (69) Rhythm: NSR Intervals: Normal OH. No: Prolonged QT QRS: LVH Ischemia: Normal ST segments Compare to prior EKG: Unchanged from prior EKG Computer interpretation: Agree with computer - Labs Labs: Laboratory Tests 01/19/21 01/19/21 01/19/21 13:43 13:43 13:43 WBC 6.3 RBC 4.97 Hgb 14.3 Hct 43.5 MCV 87.5 MCH 28.8 MCHC 32.9 RDW 13.3 Plt Count 221 MPV 9.0 Neut # (Auto) 4.2 Lymph # (Auto) 1.1 L [place] # (Auto) 0.8 Eos # (Auto) 0.2 Baso # (Auto) 0.0 Absolute Nucleated RBC 0.00 Nucleated RBC % 0.0 Sodium 134 L Potassium 3.3 L Chloride 97 L Carbon Dioxide 24 Anion Gap 13.0 BUN 19 Creatinine 0.6 Estimated GFR (MDRD) 95 Glucose 94 Calcium 10.4 H Total Bilirubin 0.7 AST 20 ALT 17 Alkaline Phosphatase 56 Troponin I High Sens 7.9 Total Protein 6.6 L Albumin 4.2 Globulin 2.4 Albumin/Globulin Ratio 1.8 Lipase 36 PD MEDICAL DECISION MAKING - ED course Complexity details: reviewed results, re-evaluated patient, considered differential, d/w patient, d/w energy sales consultant (Madelaine Triana) ED course: 85-year-old female presents emergency department for evaluation of palpitations and chest pressure that has been occurring with increasing frequency over the last few weeks. She is concerned that it is due to an elevated blood pressure. She was recently stopped on her amlodipine about 6 weeks ago as she had good blood pressure control at home. She did present to the walk-in clinic for evaluation but due to an elevated blood pressure there they advised her to come to the ER. On exam she has no focal neuro deficits and denies chest pain or pressure at the time that I am seeing her. Her EKG is sinus rhythm without any ischemic changes. It is unchanged from the most recent one that we have. High- sensitivity troponin is negative. Chest x-ray shows no acute focal opacities. She is currently taking CellCept and has been for about 18 months as she has an unclear interstitial lung disease. Prior to the initiation of CellCept she did report that she had an echo and a stress test completed through her mitten stitcher at the [facility] that did not show any worrisome findings. Patient does have a heart score of 5. I discussed this case with our admitting hospitalist Dr. Ryder however given that within the last 2 years she has had imaging and a stress test that was reassuring she does not recommend that the patient be brought in for cardiac work-up. She would recommend Holter monitoring at home as well as continue follow-up with her mitten stitcher. Should consider resuming the amlodipine. This plan was discussed with the patient who does agree. Emergent return precautions was discussed Departure - Departure Disposition: 01 Home, Self Care Clinical Impression: Elevated blood pressure reading Chest pain Qualifiers: Chest pain type: unspecified Qualified Code(s): R07.9 - Chest pain, unspecified Comments: Lian you were seen in the emergency department today for palpitations and chest pressure. Your EKG, chest x-ray and labs are all essentially normal for age. I would discuss this ED visit with your primary care doctor and mitten stitcher. You would benefit from having a Holter monitor placed as an outpatient and reevaluation of your stress test and echocardiogram. If you develop chest pain, feel faint or dizzy or feel that your symptoms are worsening please return immediately to the emergency department. It is okay to resume taking the amlodipine as you have had elevated blood pressure today here in the emergency department.
--- NOTE | 2021-01-19 14:36 | XRAY Report ---
PROCEDURE: Chest 1 View X-Ray INDICATIONS: Chest Pain TECHNIQUE: One view of the chest was acquired. COMPARISON: FINDINGS: Surgical changes and devices: None. Lungs and pleura: No pleural effusions or pneumothorax. Lungs are clear. Mediastinum: Mediastinal contours appear normal. Heart size is normal. Bones and chest wall: No suspicious bony lesions. Overlying soft tissues appear unremarkable. IMPRESSION: Normal for age, source of current symptoms is not seen. Reviewed by: Gatito Interiano MD on 01/19/2021 2:34 PM PST Approved by: Gatito Interiano MD on 01/19/2021 2:34 PM PST Station ID: [id number]
[2021-01-19 15:40] VITALS: BP 138/66
== END 2021-01-19 15:50 | disposition home or self-care (01) ==
LOC: EDUNIT# → ED 12:47
DX: R07.9 Chest pain, unspecified (principal); R00.2 Palpitations; I10 Essential (primary) hypertension; I44.4 Left anterior fascicular block; J84.9 Interstitial pulmonary disease, unspecified; F41.9 Anxiety disorder, unspecified
CPT/HCPCS: 36415; 80053; 83690; 84484; 85025; 93005; 99281; 99284

== ENCOUNTER 2021-03-27 09:59 | Outpatient (CLI) | payer MEDICARE, OTHER | END 2021-03-27 10:00 | disposition EMS.NT | LOC: EMS 09:59 | DX: F41.9 Anxiety disorder, unspecified (principal) ==

== ENCOUNTER 2021-05-03 08:00 | Outpatient (CLI) | payer MEDICARE, OTHER ==
[2021-05-03 18:21] LABS: ALBUMIN 4.5 g/dL (3.2-5.5); ALBUMIN/GLOBULIN RATIO 1.8 (1.0-2.2); BILIRUBIN,TOTAL 0.8 mg/dL (0.2-1.0); CREATININE 0.7 mg/dL (0.4-1.0); POTASSIUM 4.2 mmol/L (3.5-5.0)
[2021-05-03 18:31] LABS: THYROID STIMULATING HORMONE 2.64 uIU/mL (0.34-5.60)
== END 2021-05-03 23:59 | disposition home or self-care (01) ==
LOC: LAB.WCP 08:00
PROVIDERS: ATTEND Family Medicine
DX: R00.2 Palpitations (principal); I10 Essential (primary) hypertension
CPT/HCPCS: 36415; 80053; 83735; 84443

== ENCOUNTER 2021-05-11 08:00 | Outpatient (CLI) | payer MEDICARE, OTHER | END 2021-05-11 08:01 | disposition home or self-care (01) | LOC: DI 08:00 | PROVIDERS: ATTEND Family Medicine | DX: R00.2 Palpitations (principal) | CPT/HCPCS: 93306 ==

== ENCOUNTER 2021-07-27 08:45 | Outpatient (CLI) | payer MEDICARE, OTHER ==
--- NOTE | 2021-07-27 11:01 | CARDIAC PROCEDURE NOTE ---
Stress Test Report Service Date: 07/27/21 Service Time: 10:00 Ordering Provider: Meme Fregoso DO Indication for Test: Assess chest discomfort. Significant Medical History: -Lian is referred for evaluation of a symptom complex that has progressed over the past approximately 2 years. She reports having returned from a cruise just prior to that time, with development of a severe cough. She underwent evaluation with an echocardiogram and stress test at the [facility] that reportedly did not reveal a cardiac contribution. 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 Over the past year, however, she has developed a symptom complex that can include chest discomfort with radiation upward to the neck, sometimes associated with anxiety and heart palpitations. - She was seen at the [facility] Emergency Department in January of this year with an episode of increased symptoms that happened to be associated with discontinuation of amlodipine (recommended because blood pressure had been so well controlled). The Emergency Department evaluation was unyielding of an ischemic abnormality, with normal range high sensitivity troponin and EKG showing sinus rhythm, first-degree AV block, probable left atrial enlargement and left anterior fascicular block. In April she underwent a resting echocardiogram that revealed mild concentric LVH with a sigmoid shaped septum that was associated with an LVOT peak pressure gradient of 105 mmHg, mean 47. I will comment that this is a finding that is not uncommon in elderly women and did not appear to show other hemodynamic findings (systolic anterior motion of the mitral valve or significant mitral regurgitation) that would indicate hypertrophic cardiomyopathy. -She tells me today that she continues experiencing intermittent chest discomfort, which is most typically triggered by bending over, rather than by walking or other physical exertion. With the ongoing Covid pandemic her activities have been quite limited and her tolerance of physical exertion has diminished, such that she would not feel comfortable performing treadmill exercise. Therefore she is to undergo ischemia evaluation with a Lexiscan st ress protocol that includes slow walking. Cardiac Risk Factors: History of hypertension, hyperlipidemia and positive family history of CAD in her father and sister; no history of cigarette smoking or diabetes. Type of Stress Test: Pharmacologic Stress Test with MPI Pharmacologic Agent: Lexiscan Procedure: -Pharmacologic Stress Test- After signing informed consent, the patient underwent rest SPECT imaging; then a pharmacologic stress test was performed, using the walking Lexiscan protocol. The test was terminated due to completing the protocol. Resting heart rate: 78 Peak heart rate: 109 Normal HR response. Resting BP: 193/99 Peak BP: 203/99 Hypertensive resting BP with abnormal incremental BP increase. Rhythm during testing: Sinus rhythm with first degree AV block, with brief episodes of probable Wenkebach (type I) second degree AV block. Symptoms: Leg heaviness, fatigue, headache; no chest heaviness was described. EKG at rest showed normal sinus rhythm with first degree AV block, with left atrial abnormality and left anterior fascicular block. Cannot exclude superimposed anterolateral infarct pattern (likely LAFB manifestation). EKG at peak stress showed no ischemia by EKG criteria. In Recovery blood pressure gradually declined to a lower level than was seen at baseline (148/85). IKenny MD, was present throughout this stress test and supervised it in all aspects. Nuclear imaging was performed at rest and with stress. Summary: 1) Abnormal resting EKG. 2) Adequate stress was achieved. 3) Hypertensive at baseline with abnormal BP response to pharmacologic agent. 4) No ischemic changes by EKG criteria were seen at peak stress. 5) Nuclear image interpretation revealed normal left ventricular (LV) size and systolic function. SPECT analysis revealed normal perfusion throughout the LV myocardium at rest and with stress, thus there was no evidence of prior infarct or inducible ischemia. See separate report for more details. CONCLUSIONS: 1) Normal walking Lexiscan stress myocardial perfusion imaging study results. 2) Given resting hypertension and paradoxical BP increase with Lexiscan recommend renewed focus on ambulatory BP values and intensification of treatment as appropriate based on results.
[2021-07-27] MEDS ORDERED: AMINOPHYLLINE 500 MG/20 ML VIAL ONE (11:12)
[2021-07-27] MEDS ORDERED: REGADENOSON 0.4 MG/5 ML SYRINGE IVP ONE ×2 (11:13→18:02)
--- NOTE | 2021-07-28 13:09 | Nuclear Medicine Report ---
PROCEDURE: Rest and exercise myocardial perfusion SPECT with gated imaging and ejection fraction INDICATIONS: DIASTOLIC DYSFUNCTION RADIOPHARMACEUTICAL: 10.0 mCi Tc-99m Myoview IV at rest and 27.0 mCi Tc-99m Myoview IV at peak exerc ise. [id number] was performed. TECHNIQUE: Radiopharmaceutical was injected at peak stress test, and also at rest. SPECT images wer e obtained. SPECT myocardial perfusion images were displayed in short axis, horizontal long axis, an d vertical long axis views. Gated images were reviewed using Auto[employer] software. COMPARISON: None available. FINDINGS: Raw data: There is good myocardial labeling by radiotracer. No significant motion artifacts. Lung- to-heart ratio is 0.27 (normal is less than 0.46 for tetrafosmin tracer). Left ventricle function: Gated images demonstrate normal left ventricle wall thickening. No segment al wall motion abnormality. No transient ischemic dilation; TID is 1.25 (normal less than 1.30). Th e left ventricle resting end-diastolic volume is normal. Left ventricle stress ejection fraction is >70%; normal values are above 45%. Myocardial perfusion: There is normal distribution of activity in the left and right ventricular leo cardium. No fixed or reversible perfusion defects. IMPRESSION: 1. Normal myocardial perfusion images. No perfusion defect to suggest myocardial ischemia or infarct. 2. Normal left ventricular volume and systolic function. 3. Please correlate with stress EKG result. PQRS ATTESTATIONS: Measure 322 - Is this imaging test primarily performed on a low-risk surgery patient for preoperative evaluation within 30 days preceding their low-risk non-cardiac surgery? Low-risk surgery is defined as cardiac or myocardial infarction less than 1%, including (but not limited to) endoscopic pr ocedures, superficial procedures, cataract surgery, and excisional breast surgery: Answer: No Measure 323 - Is this imaging test performed primarily for the monitoring of an asymptomatic patient who had percutaneous coronary intervention on the visit date or within 2 years of the visit date? An swer: No Measure 324 - Is this imaging test performed primarily for the initial detection and risk assessment on an asymptomatic, low coronary heart disease patient? Low CHD risk definition = clinicians should consider the maximum number of available patient factors used to estimate risk based on [place] (A TP III criteria), typically age, gender, diabetes, smoking status, and use of blood pressure medicati on, and integrate age appropriate estimates for missing elements, such as LDL or standard blood press ure. Answer: No Reviewed by: Kami Flores MD on 07/28/2021 1:08 PM PDT Approved by: Kami Flores MD on 07/28/2021 1:08 PM PDT Station ID: [id number]
== END 2021-07-27 08:46 | disposition home or self-care (01) ==
LOC: DI 08:45
PROVIDERS: ATTEND Family Medicine
DX: I51.9 Heart disease, unspecified (principal); R94.31 Abnormal electrocardiogram [ECG] [EKG]; R07.9 Chest pain, unspecified; R00.2 Palpitations; I10 Essential (primary) hypertension; E78.5 Hyperlipidemia, unspecified; Z82.49 Family history of ischemic heart disease and other diseases of the circulatory system
CPT/HCPCS: 78452; 93017; A9500; J2785

== ENCOUNTER 2021-08-19 09:18 | Outpatient (CLI) | payer MEDICARE, OTHER ==
[2021-08-19 09:34] LABS: BASOPHILS % (AUTO) 0.7 %; EOSINOPHILS # (AUTO) 0.1 10^3/uL (0.0-0.7); HCT - HEMATOCRIT 46.1 % (37.0-47.0); HGB - HEMOGLOBIN 14.8 g/dL (12.0-16.0); LYMPHOCYTES # (AUTO) 1.4 10^3/uL (1.5-3.5); LYMPHOCYTES % (AUTO) 23.2 %; MEAN CORPUSCULAR HEMOGLOBIN 29.1 pg (27.0-31.0); MEAN CORPUSCULAR HGB CONC 32.1 g/dL (32.0-36.0); MEAN CORPUSCULAR VOLUME 90.6 fL (81.0-99.0); MEAN PLATELET VOLUME 9.2 fL (7.9-10.8); MONOCYTES # (AUTO) 0.8 10^3/uL (0.0-1.0); MONOCYTES % (AUTO) 12.7 %; NEUTROPHILS # (AUTO) 3.7 10^3/uL (1.5-6.6); NEUTROPHILS % (AUTO) 61.2 %; PLT - PLATELET COUNT 223 10^3/uL (130-450); RED BLOOD COUNT 5.09 10^6/uL (4.20-5.40); RED CELL DISTRIBUTION WIDTH 13.1 % (12.0-15.0)
[2021-08-19 09:47] LABS: ALBUMIN 4.4 g/dL (3.2-5.5); ALBUMIN/GLOBULIN RATIO 1.7 (1.0-2.2); BILIRUBIN,TOTAL 0.9 mg/dL (0.2-1.0); CALCIUM 9.9 mg/dL (8.5-10.3); CREATININE 0.8 mg/dL (0.4-1.0); POTASSIUM 3.8 mmol/L (3.5-5.0)
== END 2021-08-19 09:19 | disposition home or self-care (01) ==
LOC: LAB 09:18
PROVIDERS: ATTEND Internal Medicine
DX: J84.9 Interstitial pulmonary disease, unspecified (principal); Z79.899 Other long term (current) drug therapy
CPT/HCPCS: 36415; 80053; 85025

== ENCOUNTER 2021-08-31 11:00 | Outpatient (CLI) | payer MEDICARE, OTHER ==
[2021-08-31] MEDS ORDERED: ALBUTEROL 1 PUFF INH STA (14:38)
== END 2021-08-31 11:01 | disposition home or self-care (01) ==
LOC: RT 11:00
PROVIDERS: ATTEND Internal Medicine
DX: J67.9 Hypersensitivity pneumonitis due to unspecified organic dust (principal); R06.02 Shortness of breath
CPT/HCPCS: 94060; 94727; 94729

== ENCOUNTER 2021-11-03 15:30 | Outpatient (CLI) | payer MEDICARE, OTHER ==
[2021-11-03 18:08] LABS: BILIRUBIN,URINE NEGATIVE (NEGATIVE); GLUCOSE, URINE (UA) NEGATIVE (NEGATIVE); KETONES,URINE (UA) NEGATIVE (NEGATIVE); LEUKOCYTE ESTERASE, URINE TRACE (NEGATIVE); NITRITE,URINE NEGATIVE (NEGATIVE); OCCULT BLOOD,URINE TRACE-INTA (NEGATIVE); PH,URINE 5.5 PH (5.0-7.5); PROTEIN,URINE NEGATIVE (NEGATIVE); UROBILINOGEN,URINE 0.2 (NORMAL) E.U./dL (NORMAL)
[2021-11-03 18:11] LABS: CLARITY,URINE CLEAR (CLEAR)
[2021-11-03 18:36] LABS: BACTERIA,URINE Rare /HPF (None Seen); RBC,URINE 0-5 /HPF (0-5); SQUAMOUS EPITHELIAL CELL,UR RARE Squamous (<= Few)
== END 2021-11-03 23:59 | disposition home or self-care (01) ==
LOC: LAB.WCP 15:30
PROVIDERS: ATTEND Family Medicine
DX: R10.9 Unspecified abdominal pain (principal)
CPT/HCPCS: 81001; 87086

== ENCOUNTER 2021-12-15 13:18 | Outpatient (CLI) | payer MEDICARE, OTHER | END 2021-12-15 13:19 | disposition home or self-care (01) | LOC: LAB.N 13:18 | PROVIDERS: ATTEND Internal Medicine Cardiovascular Disease | DX: R00.2 Palpitations (principal); I47.1 Supraventricular tachycardia; R07.89 Other chest pain; E78.5 Hyperlipidemia, unspecified; I42.1 Obstructive hypertrophic cardiomyopathy | CPT/HCPCS: 36415; 83883; 84155; 84165 ==

== ENCOUNTER 2022-04-07 13:17 | Outpatient (CLI) | payer MEDICARE, OTHER ==
[2022-04-07 17:47] LABS: ALBUMIN 4.3 g/dL (3.2-5.5); ALBUMIN/GLOBULIN RATIO 1.5 (1.0-2.2); BILIRUBIN,TOTAL 0.8 mg/dL (0.2-1.0); CALCIUM 9.8 mg/dL (8.5-10.3); CREATININE 0.9 mg/dL (0.4-1.0); POTASSIUM 4.4 mmol/L (3.5-5.0); TOTAL PROTEIN 7.1 g/dL (6.7-8.2)
[2022-04-07 18:07] LABS: BASOPHILS # (AUTO) 0.1 10^3/uL (0.0-0.1); BASOPHILS % (AUTO) 0.8 %; EOSINOPHILS # (AUTO) 0.2 10^3/uL (0.0-0.7); HCT - HEMATOCRIT 43.5 % (37.0-47.0); HGB - HEMOGLOBIN 13.6 g/dL (12.0-16.0); LYMPHOCYTES % (AUTO) 31.9 %; MEAN CORPUSCULAR HEMOGLOBIN 29.2 pg (27.0-31.0); MEAN CORPUSCULAR HGB CONC 31.3 g/dL (32.0-36.0); MEAN CORPUSCULAR VOLUME 93.5 fL (81.0-99.0); MONOCYTES # (AUTO) 0.7 10^3/uL (0.0-1.0); MONOCYTES % (AUTO) 10.4 %; NEUTROPHILS # (AUTO) 3.4 10^3/uL (1.5-6.6); NEUTROPHILS % (AUTO) 53.7 %; PLT - PLATELET COUNT 266 10^3/uL (130-450); RED BLOOD COUNT 4.65 10^6/uL (4.20-5.40); RED CELL DISTRIBUTION WIDTH 13.5 % (12.0-15.0); WHITE BLOOD COUNT 6.3 x10^3/uL (4.8-10.8)
== END 2022-04-07 13:18 | disposition home or self-care (01) ==
LOC: LAB.N 13:17
PROVIDERS: ATTEND Internal Medicine
DX: J84.9 Interstitial pulmonary disease, unspecified (principal); Z79.899 Other long term (current) drug therapy
CPT/HCPCS: 36415; 80053; 85025

== ENCOUNTER 2022-10-26 09:20 | Outpatient (CLI) | payer MEDICARE, OTHER | END 2022-10-26 09:21 | disposition critical access hospital (66) | LOC: EMS 09:20 | DX: R20.0 Anesthesia of skin (principal); R53.1 Weakness; H93.19 Tinnitus, unspecified ear; R53.83 Other fatigue | CPT/HCPCS: A0425; A0429 ==

== ENCOUNTER 2022-10-26 09:37 | Emergency (ER) | payer MEDICARE, OTHER ==
--- NOTE | 2022-10-26 09:59 | ED Physician Documentation ---
PD HPI DYSPNEA - Stated complaint Stated Complaint: L LEG NUMBNESS - Chief complaint Chief Complaint: Neuro - History obtained from History obtained from: Patient - History of Present Illness Timing - onset: How many days ago (several) Timing - onset during: Light activity Timing - duration: Days (several days of feeling general weakness, and lighthead ed with standing up. Feeling of dyspnea this AM but no cough nor wheezing. no chest pain. Has had intermittent feeling of numbness in anterior ankle and medial foot. This has increased to mid/upper emmanuel as well the past few days. no calf pain.) Timing - details: Gradual onset, Still present, Waxing and waning Inciting event(s): No: Out of meds, URI Improved by: Rest. No: Sitting up Worsened by: Other (feels lightheaded with initial standing up.). No: Laying flat Associated symptoms: Anxiety (she felt anxious when had lightheadedness upon postural change this morning.). No: Fever, Cough, Wheezing, Chest pain / discomfort, Palpitations, Bilateral edema Similar symptoms before: Has not had sx before Recently seen: Not recently seen Review of Systems Constitutional: reports: Fatigue. denies: Fever, Chills, Myalgias Nose: denies: Rhinorrhea / runny nose, Congestion Throat: denies: Sore throat Cardiac: denies: Chest pain / pressure, Palpitations Respiratory: reports: Dyspnea. denies: Cough, Wheezing GI: denies: Abdominal Pain Musculoskeletal: denies: Extremity swelling Neurologic: reports: Numbness (has had patch of numbness anterior ankle/foot and now up to emmanuel for months or more. denies back pain. no foot/leg weakness.). denies: Focal weakness PD PAST MEDICAL HISTORY - Past Medical History Cardiovascular: Hypertension Respiratory: Pneumonia, Shortness of breath Neuro: None Endocrine/Autoimmune: None GI: GERD, Hiatal hernia [employer]: None : None HEENT: Glaucoma, Other Psych: Anxiety Musculoskeletal: Osteoarthritis Derm: None - Past Surgical History Past Surgical History: Yes General: Appendectomy, Colonoscopy Ortho: Spine surgery HEENT: Cataracts - Present Medications Home Medications: Ambulatory Orders Medication Instructions Recorded Confirmed Metoprolol Succinate [Toprol Xl] 1.5 tab PO DAILY 10/26/22 10/26/22 Mirtazapine 7.5 mg PO HS 12/07/22 12/07/22 Omeprazole Magnesium 20 mg PO DAILY 10/26/22 10/26/22 azaTHIOprine [Azathioprine] 150 mg PO DAILY 10/26/22 10/26/22 - Allergies Allergies/Adverse Reactions: Allergies Allergy/AdvReac Type Severity Reaction Status Date / Time Penicillins Allergy Hives Verified 10/26/22 09:59 Mxsiohw-[id number]-HgT Reductase Allergy Unknown Verified 10/26/22 09:59 Inhibitor [Hkoadwq-Syt-Zby Reductase Inhibitor] Sulfa (Sulfonamide Allergy Nausea Verified 10/26/22 09:59 Antibiotics) trazodone Allergy Unknown Verified 10/26/22 09:59 aspirin AdvReac Unknown Verified 10/26/22 09:59 codeine AdvReac Unknown Verified 10/26/22 09:59 - Social History Does the pt smoke?: No Smoking Status: Never smoker Does the pt drink ETOH?: Yes Does the pt have substance abuse?: No - Immunizations Immunizations are current?: Yes - POLST Patient has POLST: No PD ED PE NORMAL - Vitals Vital signs reviewed: Yes - General General: Alert and oriented X 3, No acute distress, Well developed/nourished - Neck Neck: Supple, no meningeal sign, No adenopathy - Cardiac Cardiac: RRR, No murmur - Respiratory Respiratory: Clear bilaterally - Abdomen Abdomen: Soft, Non tender - Derm Derm: Normal color, Warm and dry - Extremities Extremities: No edema, No calf tenderness / cord - Neuro Neuro: Alert and oriented X 3, No motor deficit, Normal speech, Other (some decrease in sensory in anterior/medial ankle and foot and on medial anterior lower leg. no calf tenderness nor LE swelling. ) Results - Vitals Vitals: Vital Signs - 24 hr 10/26/22 10/26/22 10/26/22 09:43 10:09 10:50 Temperature 37.0 C Heart Rate 65 64 Heart Rate [ 63 Sitting] Heart Rate [ 64 Standing] Heart Rate [ 60 Supine] Respiratory 22 20 Rate Blood Pressure 169/77 H 174/95 H Blood Pressure 154/92 H [Sitting] Blood Pressure 125/84 H [Standing] Blood Pressure 165/91 H [Supine] O2 Saturation 98 92 10/26/22 12:00 Temperature Heart Rate 61 Heart Rate [ Sitting] Heart Rate [ Standing] Heart Rate [ Supine] Respiratory 22 Rate Blood Pressure 134/116 H Blood Pressure [Sitting] Blood Pressure [Standing] Blood Pressure [Supine] O2 Saturation 98 Oxygen O2 Source Room air - EKG (time done) 10:15 Rate: Rate (enter#) (63) Rhythm: NSR [place]: Normal Intervals: Normal [place] QRS: Normal, Poor R wave progression Ischemia: Normal ST segments. No: ST elevation c/w ischemia, ST depression - Labs Labs: Laboratory Tests 10/26/22 10/26/22 10/26/22 10:28 10:28 10:28 WBC 5.5 RBC 4.59 Hgb 13.5 Hct 42.1 MCV 91.7 MCH 29.4 MCHC 32.1 RDW 14.5 Plt Count 219 MPV 9.1 Neut # (Auto) 3.6 Lymph # (Auto) 1.1 L [place] # (Auto) 0.7 Eos # (Auto) 0.1 Baso # (Auto) 0.0 Absolute Nucleated RBC 0.00 Nucleated RBC % 0.0 Sodium 137 Potassium 4.0 Chloride 102 Carbon Dioxide 24 Anion Gap 11.0 BUN 23 H Creatinine 0.7 Estimated GFR (MDRD) 79 L Glucose 100 Calcium 9.6 Magnesium 1.7 Total Bilirubin 0.8 AST 21 ALT 14 Alkaline Phosphatase 43 B-Natriuretic Peptide 380 H Total Protein 6.8 Albumin 4.1 Globulin 2.7 Albumin/Globulin Ratio 1.5 Lipase 51 - Rads (name of study) chest xray Radiology: Prelim report reviewed (no acute cardiopulmonary process. ), See rad report PD MEDICAL DECISION MAKING - ED course Complexity details: reviewed results, re-evaluated patient, considered differential (lower left leg area of numbness (not whole leg and none of arm/face) would sound like peripheral nerve or nerve root prodcess. clinically does not seem like PE. having lightheaded feeling with standing. some postural change in BP. ), d/w patient Departure - Departure Disposition: 01 Home, Self Care Clinical Impression: Left leg numbness, Postural lightheadedness Condition: Stable Record reviewed to determine appropriate education?: Yes Comments: Your numbness in the left leg sounds likely to be a nerve irritation given the small pattern to it just and that strip of the leg. I think you are having a "pinched nerve" type process either around the leg or from the back. It does not feel like a blood clot. It does not sound central like a stroke given the limited distribution of the numbness. Your basic electrolytes and blood sugar and kidney function are good. You did have some drop in blood pressure from's lying to standing which may suggest some element of under hydration. Be sure to eat and drink well through the day. I would continue your current medications however. Follow-up with your primary care. If you continue with lightheadedness on standing, they may decide to lower your blood pressure medicines. Your blood pressure resting is still at the higher end of normal so I would not decrease the dose at this point. Encourage hydration. Follow-up with your primary care. Your chest x-ray is clear without any signs of fluid, pneumonia. Unclear the feeling of dyspnea. Discharge Date/Time: 10/26/22 12:50
[2022-10-26 10:33] LABS: BASOPHILS % (AUTO) 0.5 %; EOSINOPHILS # (AUTO) 0.1 10^3/uL (0.0-0.7); EOSINOPHILS % (AUTO) 1.8 %; HCT - HEMATOCRIT 42.1 % (37.0-47.0); HGB - HEMOGLOBIN 13.5 g/dL (12.0-16.0); LYMPHOCYTES # (AUTO) 1.1 10^3/uL (1.5-3.5); LYMPHOCYTES % (AUTO) 19.7 %; MEAN CORPUSCULAR HEMOGLOBIN 29.4 pg (27.0-31.0); MEAN CORPUSCULAR HGB CONC 32.1 g/dL (32.0-36.0); MEAN CORPUSCULAR VOLUME 91.7 fL (81.0-99.0); MEAN PLATELET VOLUME 9.1 fL (7.9-10.8); MONOCYTES # (AUTO) 0.7 10^3/uL (0.0-1.0); MONOCYTES % (AUTO) 11.9 %; NEUTROPHILS # (AUTO) 3.6 10^3/uL (1.5-6.6); NEUTROPHILS % (AUTO) 65.9 %; PLT - PLATELET COUNT 219 10^3/uL (130-450); RED BLOOD COUNT 4.59 10^6/uL (4.20-5.40); RED CELL DISTRIBUTION WIDTH 14.5 % (12.0-15.0); WHITE BLOOD COUNT 5.5 x10^3/uL (4.8-10.8)
--- NOTE | 2022-10-26 10:33 | XRAY Report ---
PROCEDURE: Chest 1 View X-Ray INDICATIONS: chest pain TECHNIQUE: One view of the chest was acquired. COMPARISON: 01/19/2021 FINDINGS: Surgical changes and devices: None. Lungs and pleura: No pleural effusions or pneumothorax. Lungs are clear. Mediastinum: Mediastinal contours appear normal. Heart size is normal. Bones and chest wall: No suspicious bony lesions. Overlying soft tissues appear unremarkable. IMPRESSION: No evidence acute pulmonary process. Reviewed by: Hitesh Chun MD on 10/26/2022 10:32 AM [facility] Approved by: Hitesh Chun MD on 10/26/2022 10:32 AM [facility] Station ID: [id number]
[2022-10-26 10:48] LABS: ALBUMIN 4.1 g/dL (3.2-5.5); ALBUMIN/GLOBULIN RATIO 1.5 (1.0-2.2); BILIRUBIN,TOTAL 0.8 mg/dL (0.2-1.0); CALCIUM 9.6 mg/dL (8.5-10.3); CREATININE 0.7 mg/dL (0.4-1.0); MAGNESIUM 1.7 mg/dL (1.7-2.8); TOTAL PROTEIN 6.8 g/dL (6.7-8.2)
[2022-10-26 12:01] VITALS: BP 134/116
== END 2022-10-26 12:50 | disposition home or self-care (01) ==
LOC: EDUNIT# → ED 09:37
DX: R20.0 Anesthesia of skin (principal); R42 Dizziness and giddiness
CPT/HCPCS: 36415; 80053; 83690; 83735; 83880; 85025; 93005; 99284

== ENCOUNTER 2022-11-22 09:37 | Outpatient (CLI) | payer MEDICARE, OTHER ==
[2022-11-22 12:46] LABS: BASOPHILS % (AUTO) 0.6 %; EOSINOPHILS # (AUTO) 0.1 10^3/uL (0.0-0.7); EOSINOPHILS % (AUTO) 2.1 %; HGB - HEMOGLOBIN 14.5 g/dL (12.0-16.0); LYMPHOCYTES # (AUTO) 1.8 10^3/uL (1.5-3.5); MEAN CORPUSCULAR HEMOGLOBIN 29.6 pg (27.0-31.0); MEAN CORPUSCULAR HGB CONC 32.2 g/dL (32.0-36.0); MEAN CORPUSCULAR VOLUME 91.8 fL (81.0-99.0); MEAN PLATELET VOLUME 10.1 fL (7.9-10.8); MONOCYTES # (AUTO) 0.8 10^3/uL (0.0-1.0); MONOCYTES % (AUTO) 12.7 %; NEUTROPHILS # (AUTO) 3.8 10^3/uL (1.5-6.6); NEUTROPHILS % (AUTO) 57.4 %; PLT - PLATELET COUNT 208 10^3/uL (130-450); RED CELL DISTRIBUTION WIDTH 14.9 % (12.0-15.0); WHITE BLOOD COUNT 6.6 x10^3/uL (4.8-10.8)
[2022-11-22 13:15] LABS: ALBUMIN 4.2 g/dL (3.2-5.5); ALBUMIN/GLOBULIN RATIO 1.4 (1.0-2.2); CALCIUM 9.5 mg/dL (8.5-10.3); POTASSIUM 3.7 mmol/L (3.5-5.0); TOTAL PROTEIN 7.1 g/dL (6.7-8.2)
== END 2022-11-22 09:38 | disposition home or self-care (01) ==
LOC: LAB.N 09:37
PROVIDERS: ATTEND Internal Medicine
DX: Z79.899 Other long term (current) drug therapy (principal); J84.9 Interstitial pulmonary disease, unspecified
CPT/HCPCS: 36415; 80053; 85025

== ENCOUNTER 2023-01-03 11:35 | Outpatient (CLI) | payer MEDICARE, OTHER ==
[2023-01-03 18:31] LABS: CALCIUM 9.8 mg/dL (8.5-10.3); CREATININE 0.9 mg/dL (0.4-1.0)
== END 2023-01-03 11:36 | disposition home or self-care (01) ==
LOC: LAB.N 11:35
PROVIDERS: ATTEND Physician Assistant
DX: I10 Essential (primary) hypertension (principal)
CPT/HCPCS: 36415; 80048